=== PATIENT | female | born 1995 | race Caucasian/White ===

== ENCOUNTER 2024-03-27 19:07 | Emergency (ER) | payer OTHER, SELFPAY ==
[2024-03-27 19:14] VITALS: BP 144/80; PULSE 101; RESP 14; TEMP 38.1; O2SAT 100
--- NOTE | 2024-03-27 19:17 | ED.URI ---
HPI - URI/Sore Throat General Chief Complaint: Upper Respiratory Infection Stated Complaint: hot and cold/throat/pass out Time Seen by Provider: 03/27/24 19:17 Source: patient Mode of arrival: ambulatory Limitations: no limitations History of Present Illness HPI Narrative: 29-year-old female presents with complaint of sore throat, fatigue starting yesterday. Afebrile. Nausea started today. Able to keep down fluids. Took Tylenol prior to arrival. Patient's daughter tested positive for strep throat, has been on antibiotics for 4 days. All systems reviewed and negative except as noted above. Related Data Allergies Allergy/AdvReac Type Severity Reaction Status Date / Time No Known Allergies Allergy Verified 03/27/24 19:17 Review of Systems Review of Systems: CONSTITUTIONAL: Denies fever, chills, or sweats. Reports fatigue. EYES: Denies visual changes, redness, or discharge. ENT: Denies rhinorrhea, congestion. Reports sore throat. Denies otalgia. CARDIOVASCULAR: Denies chest pain, palpitations, or edema. RESPIRATORY: Denies cough or dyspnea. GASTROINTESTINAL: Denies abdominal pain, nausea, vomiting, or diarrhea. GENITOURINARY: Denies dysuria or hematuria. SKIN: Denies rash or itching. MUSCULOSKELETAL: Denies back pain, joint pain, or myalgia. NEUROLOGIC: Reports headache. Denies numbness, or weakness. PSYCHIATRIC: Denies anxiety or depression. All other systems reviewed are negative, except as documented in HPI. PMFSH Comments At time of signature, agree with nursing past medical, surgical, social and family history. There is no relevant family history pertinent to the presenting complaint. Exam Narrative: GENERAL: This is a well-nourished, well-developed patient, in no apparent distress. HEAD: normocephalic, atraumatic. EYES: PERRL. Sclera clear/white. Vision is grossly intact. EARS: External ears normal, auditory canals clear and without drainage, TMs normal without perforation. Hearing grossly intact. NOSE: External nose normal with no obvious nasal discharge, nares without redness, no rhinorrhea. THROAT: Mucous membranes moist, erythematous and swollen. Tonsils 1+ bilaterally without exudates. NECK: Neck supple, non-tender without lymphadenopathy, masses or thyromegaly. CARDIOVASCULAR: Regular rate and rhythm without murmurs, gallops, or rubs. RESPIRATORY: Clear to auscultation. Breath sounds equal bilaterally. No wheezes, rales, or rhonchi. SKIN: warm, Dry, intact with no suspicious lesions or rash, good texture and turgor. NEURO: awake, alert, and oriented to person, place and time. There were no obvious focal neurologic abnormalities. EXTREMITIES: No joint tenderness, effusion, or edema noted. Course Course Level of Care: Express Care Visit Vital Signs Vital signs: Vital Signs Temperature 38.1 C H 03/27/24 19:14 Pulse Rate 101 H 03/27/24 19:14 Respiratory Rate 14 03/27/24 19:14 Blood Pressure 144/80 H 03/27/24 19:14 Pulse Oximetry 100 03/27/24 19:14 Oxygen Delivery Room Air 03/27/24 19:14 Temperature 38.1 C H 03/27/24 19:14 Pulse Rate 101 H 03/27/24 19:14 Respiratory Rate 14 03/27/24 19:14 Blood Pressure 144/80 H 03/27/24 19:14 Pulse Oximetry 100 03/27/24 19:14 Oxygen Delivery Room Air 03/27/24 19:14 Reviewed MDM - URI/Sore Throat MDM Narrative Medical decision making narrative: Patient is aware of diagnosis, understands and agrees to treatment plan. Anticipatory guidance given. Patient agrees to follow-up as directed and is aware of reasons to seek care at the emergency department. Portions of this record may have been created with voice recognition software Strep test negative. Will treat patient with antibiotic due to exam findings and recent strep exposure. Differential Diagnosis Differential diagnosis: Likely pharyngitis Lab Data Labs: Strep Screen Presumptive Negative *(Referen
== END 2024-03-27 19:50 | disposition home or self-care (01) ==
PROVIDERS: Emergency Provider Nurse Practitioner Family; PCP Physician Assistant
DX: J02.0 Streptococcal pharyngitis (principal)
CPT/HCPCS: 87081; 87880; 99213; G0463

== ENCOUNTER 2024-05-21 10:11 | Emergency (ER) | payer OTHER, SELFPAY ==
[2024-05-21 10:15] VITALS: BP 143/85; PULSE 95; RESP 16; TEMP 37.6; O2SAT 100
--- NOTE | 2024-05-21 10:25 | ED.DENTAL ---
HPI - Dental/Oral General Chief complaint: Dental/Oral Stated complaint: Toothache Time Seen by Provider: 05/21/24 10:25 Source: patient Mode of arrival: ambulatory Limitations: no limitations History of Present Illness HPI Narrative: 29-year-old female presents with complaint of right upper dental pain for 2 days. Call dentist for appointment but was told to come to Urgent Care for antibiotic. All systems reviewed and negative except as noted above. Related Data Home Medications Medication Instructions Recorded Confirmed fluoxetine 20 mg capsule mg 05/21/24 Allergies Allergy/AdvReac Type Severity Reaction Status Date / Time No Known Allergies Allergy Verified 03/27/24 19:17 Review of Systems Review of Systems: CONSTITUTIONAL: Denies fever, chills, or sweats. EYES: Denies visual changes, redness, or discharge. ENT: Denies rhinorrhea, congestion, sore throat, or otalgia. reports R upper dental pain CARDIOVASCULAR: Denies chest pain, palpitations, or edema. RESPIRATORY: Denies cough or dyspnea. GASTROINTESTINAL: Denies abdominal pain, nausea, vomiting, or diarrhea. GENITOURINARY: Denies dysuria or hematuria. SKIN: Denies rash or itching. MUSCULOSKELETAL: Denies back pain, joint pain, or myalgia. NEUROLOGIC: Denies headache, numbness, or weakness. PSYCHIATRIC: Denies anxiety or depression. All other systems reviewed are negative, except as documented in HPI. PMFSH Comments At time of signature, agree with nursing past medical, surgical, social and family history. There is no relevant family history pertinent to the presenting complaint. Exam Narrative: GENERAL: This is a well-nourished, well-developed patient, in no apparent distress. HEAD: normocephalic, atraumatic. EYES: PERRL. Sclera clear/white. Vision is grossly intact. EARS: External ears normal NOSE: External nose normal MOUTH: no abnormality noted to teeth. there is erythema, swelling, tenderness to R upper gums with no abscess noted NECK: Neck supple, non-tender without lymphadenopathy, masses or thyromegaly. CARDIOVASCULAR: Regular rate and rhythm without murmurs, gallops, or rubs. RESPIRATORY: Clear to auscultation. Breath sounds equal bilaterally. No wheezes, rales, or rhonchi. SKIN: warm, Dry, intact with no suspicious lesions or rash, good texture and turgor. NEURO: awake, alert, and oriented to person, place and time. There were no obvious focal neurologic abnormalities. EXTREMITIES: No joint tenderness, effusion, or edema noted. Course Course Level of Care: Express Care Visit Vital Signs Vital signs: Vital Signs Temperature 37.6 C 05/21/24 10:15 Pulse Rate 95 05/21/24 10:15 Respiratory Rate 16 05/21/24 10:15 Blood Pressure 193/85 H 05/21/24 10:15 Pulse Oximetry 100 05/21/24 10:15 Oxygen Delivery Room Air 05/21/24 10:15 Temperature 37.6 C 05/21/24 10:15 Pulse Rate 95 05/21/24 10:15 Respiratory Rate 16 05/21/24 10:15 Blood Pressure 193/85 H 05/21/24 10:15 Pulse Oximetry 100 05/21/24 10:15 Oxygen Delivery Room Air 05/21/24 10:15 Reviewed MDM - Dental/Oral MDM Narrative Medical decision making narrative: Patient is aware of diagnosis, understands and agrees to treatment plan. Anticipatory guidance given. Patient agrees to follow-up as directed and is aware of reasons to seek care at the emergency department. Portions of this record may have been created with voice recognition software Differential Diagnosis Differential diagnosis: Likely dental caries, toothache and dental abscess Discharge Plan Discharge Clinical Impression: Pain, dental Patient Disposition: Home, Self-Care Condition: Stable Instructions: Antibiotic Form, Toothache (ED) Additional Instructions: Take antibiotic as prescribed until gone. Take ibuprofen every 6-8 hours as needed for pain. Follow-up with dentist for further evaluation. Prescriptions: New amoxicillin 875 mg tablet
[2024-05-21 10:33] VITALS: BP 132/80
== END 2024-05-21 10:36 | disposition home or self-care (01) ==
PROVIDERS: Emergency Provider Nurse Practitioner Family; PCP Physician Assistant
DX: K08.89 Other specified disorders of teeth and supporting structures (principal)
CPT/HCPCS: 99213; G0463

== ENCOUNTER 2024-08-02 11:52 | Outpatient (CLI) | payer OTHER, SELFPAY ==
[2024-08-02 13:04] LABS: Beta HCG Quantitative 85.06 mIU/ML
== END 2024-08-02 11:53 | disposition home or self-care (01) ==
LOC: ANHLAB 11:56
PROVIDERS: PCP Physician Assistant; Visit Provider Advanced Practice Midwife
DX: N91.2 Amenorrhea, unspecified (principal); Z32.01 Encounter for pregnancy test, result positive
CPT/HCPCS: 36415; 84702

== ENCOUNTER 2024-08-04 11:56 | Outpatient (CLI) | payer OTHER, SELFPAY ==
[2024-08-04 13:03] LABS: Beta HCG Quantitative 209.43 mIU/ML
== END 2024-08-04 11:57 | disposition home or self-care (01) ==
LOC: ANHLAB 12:05
PROVIDERS: PCP Physician Assistant; Visit Provider Advanced Practice Midwife
DX: Z32.01 Encounter for pregnancy test, result positive (principal)
CPT/HCPCS: 36415; 84702

== ENCOUNTER 2024-10-05 10:52 | Emergency (ER) | payer OTHER, SELFPAY ==
[2024-10-05 10:56] VITALS: BP 129/67; PULSE 82; RESP 20; TEMP 36.9; O2SAT 99
[2024-10-05 11:10] VITALS: BP 129/67; PULSE 82; RESP 20; TEMP 36.9; O2SAT 99
--- NOTE | 2024-10-05 11:37 | ED.URI ---
HPI - URI/Sore Throat General Chief Complaint: Upper Respiratory Infection Stated Complaint: Cough/ Time Seen by Provider: 10/05/24 11:37 Source: patient, RN notes reviewed and old records reviewed Mode of arrival: ambulatory Limitations: no limitations History of Present Illness HPI Narrative: 29-year-old female to Express Care with complaint of cough for 3 weeks. Patient states she was seen at [facility] care on the and diagnosed with bronchitis. Patient states she is 13 weeks . Patient reports using albuterol inhaler with some relief. patient denies difficulty swallowing, shortness of breath, chest pain, allergies, fever, ear pain, headache, GI complaints. Patient able to tolerate fluids by mouth. Patient resting comfortably in exam room in no acute distress. Respirations even and nonlabored. Patient able to speak in complete sentences without difficulty. Related Data Home Medications Medication Instructions Recorded Confirmed albuterol sulfate 90 mcg/actuation 2 puff inhalation Q4-6H PRN 10/05/24 10/05/24 aerosol inhaler Shortness Of Breath Or Wheezing vitamin 1 tablet PO DAILY 10/05/24 10/05/24 no.76-iron,carbonyl 29 mg iron-folic acid 1 mg tablet (Prenatabs Rx) prochlorperazine maleate 5 mg 5 mg PO Q6H PRN Nausea And Vomiting 10/05/24 10/05/24 tablet pyridoxine (vitamin B6) 25 mg 25 mg PO DAILY 10/05/24 10/05/24 tablet (Vitamin B-6) Allergies Allergy/AdvReac Type Severity Reaction Status Date / Time No Known Allergies Allergy Verified 10/05/24 11:04 Review of Systems Review of Systems: All systems reviewed & are unremarkable except as noted in HPI and below Constitutional: Constitutional: Reports no additional constitutional complaints Eyes: Eyes: Reports no additional eye complaints ENT: Reports system reviewed and no additional complaints, except as documented Cardiovascular: Cardiovascular: Reports no additional cardiovascular complaints, Denies chest pain and Denies dyspnea Respiratory: Respiratory: Reports no additional respiratory complaints, Reports cough and Denies dyspnea Musculoskeletal: Musculoskeletal: Reports no additional musculoskeletal complaints Neurologic: Reports system reviewed and no additional complaints, except as documented Psychiatric: Psychiatric: Reports no additional psychiatric complaints PMFSH Comments At the time of my signature, I reviewed and agree with the nursing past medical, surgical, social, and family history. There is no relevant family history pertinent to the patient complaint. Exam Const: General: cooperative, healthy appearing, no acute distress, alert, tired appearing and well nourished Nutritional Appearance: well nourished Orientation/consciousness: patient oriented x3 Limitations: no limitations HENMT: Head: normal to inspection Ears: external ears normal and TM abnormal with fluid behind the TM bilateral Face/Nose/Sinus: Normal external nose present, Normal nares present, No erythema, No edema and sinus tenderness Face and sinus: normal facial exam, no erythema and no edema Mouth: Yes Normal oral and palatal mucosa present Throat: postnasal drainage ( Purulent) Eyes: General: appearance normal, both eyes and all related structures Neck: Neck: normal visual inspection, full ROM and no meningeal signs Lymphatic: no lymphadenopathy noted and no lymphedema noted Chest: Chest palpation & inspection: normal inspection of the chest Resp: Effort & Inspection: normal respiratory effort and able to speak in complete sentences Auscultation: clear to auscultation bilaterally Cardio: Jugular venous distension: no JVD Rate: regular rate Rhythm: regular rhythm Back/Spine/Pelvis: Cervical Spine: cervical ROM normal Skin: General skin exam: normal color, no rashes or lesions noted and turgor normal Neuro: General: patient oriented x3, gait normal, moves all extremities and no meningeal signs Speech: normal speech Gait exam (Neuro): Normal gait present Extrem: General: normal to inspection, full ROM and capillary refill normal Psych: Appearance: grossly normal and well kempt Course Course Emergency Course: Some parts of this dictation were generated by voice recognition software and may contain typographical and/or grammatical inaccuracies. Level of Care: Express Care Visit Vital Signs Vital signs: Vital Signs Temperature 36.9 C 10/05/24 10:56 Pulse Rate 82 10/05/24 10:56 Respiratory Rate 20 10/05/24 10:56 Blood Pressure 129/67 10/05/24 10:56 Pulse Oximetry 99 10/05/24 10:56 Oxygen Delivery Room Air 10/05/24 10:56 Temperature 36.9 C 10/05/24 11:10 Pulse Rate 82 10/05/24 11:10 Respiratory Rate 20 10/05/24 11:10 Blood Pressure 129/67 10/05/24 11:10 Pulse Oximetry 99 10/05/24 11:10 Oxygen Delivery Room Air 10/05/24 11:10 reviewed MDM - URI/Sore Throat MDM Narrative Medical decision making narrative: 29-year-old female to Express Care with complaint of cough for 3 weeks. Patient states she was seen at [facility] on the and diagnosed with bronchitis. Patient states she is 13 weeks . Patient reports using albuterol inhaler with some relief. patient denies difficulty swallowing, shortness of breath, chest pain, allergies, fever, ear pain, headache, GI complaints. Patient able to tolerate fluids by mouth. Patient resting comfortably in exam room in no acute distress. Respirations even and nonlabored. Patient able to speak in complete sentences without difficulty. exam, bilateral TMs with fluid, posterior oropharynx with purulent drainage, sinus tenderness. Bilateral nares erythematous and boggy. Patient is sitting comfortably in exam room nontoxic in appearance. Patient appropriate for outpatient treatment and follow-up. Discharge instructions reviewed with patient, as well as provided in writing per nursing staff. The instructions also include specific and strict return/GO TO THE ER as well as f/u information. All questions have been answered, and the patient deny any further questions with discharge and discharge plan. Some parts of this dictation were generated by voice recognition software and may contain typographical and/or grammatical inaccuracies. Differential Diagnosis Differential diagnosis: Likely upper respiratory infection, croup, otitis media, sinusitis, viral infection, bronchitis, influenza and pharyngitis Discharge Plan Discharge Clinical Impression: Bacterial sinusitis Patient Disposition: Home, Self-Care Condition: Stable Instructions: Sinusitis (ED) Additional Instructions: - Tylenol per package directions for fever or pain. - Be sure to drink plenty of water with these medications at least 8 ounces with every dose and it is important to drink 8 to 10 glasses of water per day. Water is a natural decongestant -Eat and drink things that are easy to swallow, like tea or soup, or popsicles. -Frequent hand washing or hand news assignment editor is one of the best ways to prevent spread of infection. -Using a vaporizer or humidifier at night will also help thin secretions and help with coughing up phlegm. -Follow up with primary care provider in 2-3 days if condition is not improving; or seek ER visit if you have trouble breathing, cannot drink enough fluids, have muffled voice, difficulty opening your mouth, or severe swelling. Prescriptions: New amoxicillin 875 mg tablet 875 mg PO Q12H Qty: 20 0RF No Action Prenatabs Rx 29 mg iron- 1 mg tablet 1 tablet PO DAILY pyridoxine (vitamin B6) [Vitamin B-6] 25 mg tablet 25 mg PO DAILY albuterol sulfate 90 mcg/actuation HFA aerosol inhaler 2 puff INHALATION Q4-6H PRN (Reason: Shortness Of Breath Or Wheezing) prochlorperazine maleate 5 mg tablet 5 mg PO Q6H PRN (Reason: Nausea And Vomiting) Follow-up/Referrals: Nathalia,JESSICA Bernstein [Primary Care Provider] - Stand Alone Forms: Work/School Release IP
== END 2024-10-05 12:15 | disposition home or self-care (01) ==
PROVIDERS: Emergency Provider Nurse Practitioner Family; PCP Physician Assistant
DX: O99.511 Diseases of the respiratory system complicating pregnancy, first trimester (principal); Z3A.13 13 weeks gestation of pregnancy; J01.90 Acute sinusitis, unspecified
CPT/HCPCS: 99213; G0463

== ENCOUNTER 2025-06-16 14:03 | Emergency (ER) | payer OTHER, SELFPAY ==
--- OUTSIDE RECORDS SUMMARY | 2025-06-16 14:05 | XMS_ITS | Clinical Summary ---
Author Organization [facility] [employer] Address [address] [place] [address] Care Team Providers Care Sinter Feeder Name Role Phone Unavailable Primary Care Provider Unavailabl e Source Comments [facility] [employer],non-owned Affiliates and Associated Physician Practices is amultiple site organization consisting of ambulatory clinics and hospital sitesin [place], [place], [place] and [place]. This disclosure is being madepursuant to the Care Everywhere program and may not contain all information available regarding this patient. Last updated 18.[employer] Allergies No known active allergies Medications * This document contains information received from the source organization and may not represent a complete record from that organization. * Be aware that medications may not be up to date on this document. Alwaysverify current medications with the patient. fluticasone propionate (FLONASE) 50 MCG/ACT nasal sprayIndications :Viral upper respiratory tract infection [place] 2 sprays into each nostril once daily 1 bottles 8 Active sertraline (Zoloft) 50 MG tabletIndication s:Depression Take 1 (one) tablet by mouth once daily Reasons: Depression 30 tablet 4 Active Social History Tobacco Use Types Packs/Day Years Used Date Smoking Tobacco: Never Smokeless Tobacco: Never Tobacco Cessation:Counseling Given: Not Answered Comments No Sex and Gender Information Value Date Recorded Sex Assigned at Not on file Legal Sex Female 9:03 AM [employer] Gender Identity Not on file Sexual Orientation Not on file Last Filed Vital Signs Vital Sign Reading Time Taken Comments Blood Pressure 125/72 08/27/2024 5:40 PM CDT Pulse 65 08/27/2024 5:40 PM CDT Temperature 37.1 C (98.7 F) 08/27/2024 5:40 PM CDT Respiratory Rate 17 08/27/2024 5:40 PM CDT Oxygen Saturation 100% 08/27/2024 5:40 PM CDT Inhaled Oxygen Concentration - - Weight 81.6 kg (180 lb) 08/27/2024 5:40 PM CDT Height 175.3 cm (5' 9) 08/27/2024 5:40 PM CDT Body Mass Index 26.58 08/27/2024 5:40 PM CDT Plan of Treatment Health Maintenance Due Date Last Done Comments HIV SCREENING 2009 HEPATITIS C SCREENING 02/11/2012 DTAP/TDAP/TD VACCINES (1 - Tdap) 2013 HEPATITIS B VACCINE (1 of 3 - 19+ 3-dose series) 2013 HPV VACCINE (1 - 3-dose SCDM series) 2021 PAP SMEAR 09/13/2023 09/13/2020 COVID-19 VACCINE (1 - 2023-2 5 season) 2024 DEPRESSION SCREENING 11/10/2024 INFLUENZA VACCINE (#1) 2025 3, 09/24/2002, 08/24/2002 ZOSTER VACCINE (1 of 2) 02/16/2044 HIB VACCINE Aged Out No longer eligi ble based on patient's age to complete this topic MENINGOCOCCAL (Group B) VACCINE SHARED DECISION-MAKING Aged Out No longer eligible based on patient's age to complete this topic MENINGOCOCCAL GROUPS A/C/Y/W VACCINE Aged Out No longer eligible b ased on patient's age to complete this topic PNEUMOCOCCAL VACCINE Aged Out No long er eligible based on patient's age to complete this topic Insurance [place] [address] [place] [address] [employer] * Guarantor: SUKI CIFUENTES Account Type Relation to Patient Date of Phone Billing Address Personal/Family 1994 [address] [place] [address]
--- OUTSIDE RECORDS SUMMARY | 2025-06-16 14:06 | XMS_ITS | Encounter Summary ---
Author Organization [facility] Address [address] [place] [address] Phone Care Team Providers Care Erosion Control Coordinator Name Role Phone Jessica Sloan Primary Care Provider + Peter Jade MD Unavailable [phone] Encounter Details Date Type Department Care Team (Late st Contact Info) Description 05/30/2025 Results Follow-Up [facility] - Family Medicine - [place] [address] [place] [phone] Jazmin Medley, STEAM GIGGER, WEIGHT CALLER [address] [place] [address] CBC WITH AUTO DIFFERENTIAL, THYROID SCREEN WITH REFLEX Social History Tobacco Use Types Packs/Day Years Used Date Smoking Tobacco: Former Smokeless Tobacco: Never Comments:only if I'm going out, dont smoke anyother time. Alcohol Use Standard Drinks/Week Comments Yes 2 (1 standard drink = 0.6 oz pur e alcohol) saurav andino or alexandre kim [facility] Utilities Answer Date Recorded In the past 12 months has [employer] electric, gas, oil, or water company threatened to shut off services in your home? No 05/04/2024 Social Connection and Isolation Panel Answer Date Recorded In a typical week, how many times do you talk on the phone with family, friends, or neighbors? Twice a week 05/04/2024 How often do you get together with friends or re latives? Once a week 05/04/2024 How often do you attend religion or tenriism serv ices? Never 05/04/2024 Do you belong to any clubs o r organizations such as religion groups, unions, fraternal or athletic groups, or school groups? No 05/04/2024 How often do you attend meet ings of the clubs or organizations you belong to? Never 05/04/2024 Are you , , di vorced, , never , or living with a partner? 05/04/2024 AUDIT-C Answer Date Recorded Q1: How often do you have a drink containing alc ohol? Monthly or less 05/04/2024 Q2: How many drinks containi ng alcohol do you have on a typical day when you are drinking? 1 or 2 05/04/2024 Q3: How often do you have si x or more drinks on one occasion? Never 05/04/2024 Overall Financial Resource Strain (CARDIA) Answe r Date Recorded How hard is it for you to pa y for the very basics like food, housing, medical care, and heating? Hard 05/04/2024 PHQ-2 Answer Date Recorded Total Score - Questions 1-9 1 05/11 [facility] Occupational Stress Questionnaire Answer Date Recorded Do you feel stress - tense, restless, nervous, or anxious, or unable to sleep at night because your mind is troubled all the time - these days? To some extent 05/04/2024 Exercise Vital Sign Answer Date Recorde d On average, how many days pe r week do you engage in moderate to strenuous exercise (like a brisk walk)? 2 days 05/04/2024 On average, how many minutes do you engage in exercise at this level? 0 min 05/04/2024 Hunger Vital Sign Answer Date Recorded Within the past 12 months, y ou worried that your food would run out before you got the money to buy more. Never true 05/04/20 24 Within the past 12 months, t he food you bought just didn't last and you didn't have money to get more. Never true 05/04/2024 PRAPARE - Transportation Answer Date Re corded In the past 12 months, has l ack of transportation kept you from medical appointments or from getting medications? No 04/11 In the past 12 months, has l ack of transportation kept you from meetings, work, or from getting things needed for daily living? No 05/04/2024 Housing Stability Vital Sign Answer Darryl e Recorded In the last 12 months, was t here a time when you were not able to pay the mortgage or rent on time? No 11/05/2023 Number of Places Lived in the Last Year Not on f ile 11/05/2023 In the last 12 months, was t here a time when you did not have a steady place to sleep or slept in a usp (including now)? No 11/05/2023 Housing Stability Vital Sign Answer Darryl e Recorded In the last 12 months, was t here a time when you were not able to pay the mortgage or rent on time? No 05/04/2024 Number of Times Moved in the Last Year Not on fi le 05/04/2024 At any time in the past 12 m [facility], were you homeless or living in a usp (including now)? No 05/04/2024 Education Answer Date Recorded What is the highest level of school you have completed or the highest degree you have received? Some college, no degree 06/13/2020 Sexually Active Control Partners Comments Yes Male Comments Yes Sex and Gender Information Value Date Recorded Sex Assigned at Not on file Legal Sex Female 1:52 PM CDT Gender Identity Not on file Sexual Orientation Not on file documented as of this encounter Functional Status * Question Answer Date of Assessment Author Little interest or pleasure in doing things Not at all 05/30/2025 8:40 AM CDT Kiera Lizarraga Feeling down, depressed, or hopeless Not at all 05/30/2025 8:40 AM CDT Kiera Lizarraga * Over the past 2 weeks, how often have you been bothered by any of the following problems? Question Answer Date of Assessment Author Patient Health Questionnaire -2 Score 0 05/30/2025 8:40 AM CDT Kiera Lizarraga documented as of this encounter Plan of Treatment Upcoming Encounters Date Type Department Care Team (Late st Contact Info) Description 08/05/2025 1:45 PM CDT Office Visit [facility] - Family Medicine - [place] [place] [address] Jessica Sloan, PAC [address] [place] [address] documented as of this encounter Goals Goal Patient Goal Type Associated Problems Recent Progress Patient-Stated? Author [facility] Behavioral Health On track( 11:06 AM CDT) Yes Rachel Mercedes LCPC Note: Suki reports a desire to get back to normal, improve ability to cope. Goal Reviewed with: patient Readiness to change: Ready to change Department associated with goal: [facility] Steps to achieve goal: Suki to identify three activities/coping skills that have worked to prevent/reduce anxiety in the past. Suki to identify three new activities/coping skills that she believes may work to prevent/reduce anxiety. Suki to practice one coping skill/activity a week to prevent/reduce anxiety. Suki will attend group or individual sessions at least one time a month. Behavioral [facility] Worsening( 11:08 AM CDT) No Rachel Mercedes LCPC Note: Suki will exhibit/verbalize insight regarding benefits and relief gained from coping with anger more effectively Goal Reviewed with: patient Readiness to change: Not yet ready to make a change Department associated with goal: [facility] Steps to achieve goal: Pt to engage in self disclosure in counseling/psychotherapy sessions, attending at least two times monthly. Pt to learn and acknowledge/verbalize benefits (at least three) of expressing her thoughts and feelings to reduce anxiety and anger Pt will learn at least one relaxation method to use routinely Pt will learn cognitive strategy to help manage anger documented as of this encounter Visit Diagnoses Not on filedocumented in this encounter Additional Health Concerns Assessment Noted Time PHQ-9 Depression Total Score: 1 05/30/20 25 8:40 AM CDT documented as of this encounter Care Teams Erosion Control Coordinator Relationship Specialty Start Date End Date Jessica Sloan PAC [address] [place] [address] PCP - General Physician Postmaster 09/26/17 Peter Jade MD [address] [place] [address] Consulting Physician Obstetrics & Gynecology 06/02/18 documented as of this encounter
--- OUTSIDE RECORDS SUMMARY | 2025-06-16 14:06 | XMS_ITS | Clinical Summary ---
Author Organization [facility] Address [address] [facility] [place] [address] Phone Care Team Providers Care Mailroom Messenger Name Role Phone Jessica Sloan Primary Care Provider + Peter Jade MD Unavailable [phone] Allergies No known active allergies Medications Benzonatate 200 MG Capsule Take 1 Capsule by mouth 3 times daily as needed for Cough. 30 Capsule 4 Active Additional Information Patient not taking.Reported on 06/16/2025 FLUoxetine (PROzac) 20 MG CapsuleIndicati ons:Binge eating Take 1 Capsule by mouth daily. 90 Capsule 4 Active Additional Information Patient not taking.Reported on 06/16/2025 Multiple Vitamin (MULTI-VITAMIN PO) Take by mouth. Activ e albuterol 108 (90 Base) MCG/ACT Aerosol SolutionIndicat ions:Bronchospa sm take 2 Puffs by inhalation every 6 hours as needed for Cough (sob). 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 [address] [facility] [address] [place] [address] [facility] D[facility] Discharge Disposition: Discharged to home or Selfcare 05/30/2025 8:30 AM CDT Office Visit [facility] [address] [place] [address] Jazmin Medley, SOCIAL SECURITY ASSESSOR, DRAFTER ASSISTANT Encounter for physical examination (Primary Dx); Depressive disorder; Dizziness Discharge Disposition: Discharged to home or Selfcare 05/30/2025 Results Follow-Up [facility] [address] [place] [address] Jazmin Medley, SOCIAL SECURITY ASSESSOR, DRAFTER ASSISTANT CBC WITH AUTO DIFFERENTIAL, THYROID SCREEN WITH REFLEX 05/30/2025 Travel from Last 3 Months Immunizations Immunization Administration Dates Next Due [id number] gustavo MCV4, Unspecif ied Formulation 08/19/2011 DTAP VACCINE 10/16/1995, 5,06/20/1995,08/15,1994 Hepatitis B Vaccine, Pediatric/adolescent 03/22/1996,10/16/1995 Hib (HbOC) 10/16/1995, 5,1994,04/22 Influenza Vaccine 10/05/2003,09/24/2002,08/24/20 02 Influenza, Seasonal, Injecta ble, Undefined 10/05/2003,09/24/2002,08/24/2002 MMR Vaccine 06/20/1999,07/03/1995 Meningococcal Polysaccharide Vaccine (MPSV4) 08/19/2011 OPV 06/20/1999, 5,1994,04/22 RHO D IG FULL DOSE 300 MCG IM 04/24/2018 TDAP Vaccine 02/05/2021,05/07/2006 Family History Medical History Relation Name Comments Cancer Maternal Grandfather Anxiety disorder Maternal Grandmother Anxiety disorder Mother Hypertension Paternal Grandfather Hypertension Paternal Grandmother Relation Name Status Comments Maternal Grandfather Maternal Grandmother Mother Paternal Grandfather Paternal Grandmother Social History Tobacco Use Types Packs/Day Years Used Date Smoking Tobacco: Former Smokeless Tobacco: Never Tobacco Cessation:Counseling Given: Not Answered Comments:only if I'm going out, dont smoke anyother time. Alcohol Use Standard Drinks/Week Comments Yes 2 (1 standard drink = 0.6 oz pur e alcohol) saurav andino or alexandre kim [facility] Utilities Answer Date Recorded In the past 12 months has th [employer] electric, gas, oil, or water company threatened [...] week 05/04/2024 How often do you attend cheondoism or orthodox serv ices? Never 05/04/2024 Do you belong to any clubs o r organizations such as cheondoism groups, unions, fraternal or athletic groups, or [...] Total Score - Questions 1-9 1 05/11 [facility] - Occupational Stress Questionnaire Answer Date Recorded [...] place to sleep or slept in a senior care (including now)? No 11/05/2023 Housing Stability Vital Sign Answer Darryl e Recorded In the last 12 months, was t here a time when you were not able to pay the mortgage or rent on time? No 05/04/2024 Number of Times Moved in the Last Year Not on fi le 05/04/2024 At any time in the past 12 m [facility], were you homeless or living in a senior care (including now)? No 05/04/2024 Education Answer Date [...] Sign Reading Time Taken Comments Blood Pressure 118/74 05/30/2025 8:29 AM CDT Pulse 72 05/30/2025 8:29 AM CDT Temperature 36.4 C (97.6 F) 05/30/2025 8:29 AM CDT Respiratory Rate 18 05/30/2025 8:29 AM CDT Oxygen Saturation 98% 05/30/2025 8:29 AM CDT Inhaled Oxygen Concentration - - Weight 96 kg (211 lb 9.6 oz) 05/30/2025 8:29 AM CDT Height 175.3 cm (5' 9) 05/30/2025 8:29 AM CDT Body Mass Index 31.25 05/30/2025 8:29 AM CDT Plan of Treatment Upcoming Encounters Date Type Department Care Team (Late st Contact Info) Description 08/05/2025 1:45 PM CDT [facility] [place] [address] Jessica Sloan, PAC [address] [place] [address] Health Maintenance Due Date Last Done Comments Hepatitis C Virus (HCV) Screening 1994 Hepatitis B Immunization (3 of 3 - 3-dose series) 05/17/1996 03/22/1996, 10/16/1995 Human Papillomavirus (HPV) Immunization (1 - 3-dose SCDM series) 2021 Pap Smear 09/13/2023 09/13/2020 Cervical Cancer Screening (CCS) 02/16/2024 HPV/Cotest 02/16/2024 SARS-COV-2 Immunization ( season) 2024 Influenza Immunization (#1) 07/11/202509/11, 10/05/2003, 09/24/2002, Additional history exists DTaP/Tdap/Td Immunization (7 - Td or Tdap) 02/03/2035 02/03/2025, 02/05/2021, 05/07/2006, Additional history exists Respiratory Syncytial Virus (RSV) Immunization (Adult) (1 - 1-dose 75+ series) 2069 Meningococcal Immunization (ACWY) Aged Out 08/19/2011, 08/19/2011 No longer eligibl e based on patient's age to complete this topic Pneumococcal Immunization Combined Aged Out No longer eligible based on patient's age to complete this topic Rotavirus Immunization Aged Out No lo nger eligible based on patient's age to complete this topic Goals Goal Patient Goal Type Associated Problems Recent Progress Patient-Stated? Author [facility] Behavioral Health On track( 11:06 AM CDT) Yes Rachel Mercedes LCPC Note: Suki reports a desire to get back to normal, improve ability to cope. Goal Reviewed with: patient Readiness to change: Ready to change Department associated with goal: [facility] Steps to achieve goal: Suki to identify three activities/coping skills that have worked to prevent/reduce anxiety in the past. Suki to identify three new activities/coping skills that she believes may work to prevent/reduce anxiety. Suki to practice one coping skill/activity a week to prevent/reduce anxiety. Suki will attend group or individual sessions at least one time a month. Behavioral [facility] Behavioral Health Worsening( 11:08 AM CDT) No Rachel Mercedes LCPC Note: Suki will exhibit/verbalize insight regarding benefits and relief gained from coping with anger more effectively Goal Reviewed with: patient Readiness to change: Not yet ready to make a change Department associated with goal: [facility] Steps to achieve goal: Pt to engage in self disclosure in counseling/psychotherapy sessions, attending at least two times monthly. Pt to learn and acknowledge/verbalize benefits (at least three) of expressing her thoughts and feelings to reduce anxiety and anger Pt will learn at least one relaxation method to use routinely Pt will learn cognitive strategy to help manage anger Procedures Procedure Name Priority Date/Time Associated Diagnosis Comments THYROID SCREEN WITH REFLEX Routine 05/30/2025 9:03 AM CDT Dizziness CBC WITH AUTO DIFFERENTIAL Routine 05/30/2025 9:03 AM CDT Dizziness THYROID SCREEN WITH REFLEX Routine 05/30/2025 9:03 AM CDT Dizziness COMPLETE BLOOD COUNT (CBC) WITH DIFF Routine 05/30/2025 9:03 AM CDT Dizziness PATHOLOGY CYTOLOGY SECONDARY ART TEACHER 09/13/2020 12:00 AM ADVERTISING CAMPAIGN MANAGER from Last 3 Months or Most Recently Relevant to Health Maintenance Results * THYROID SCREEN WITH REFLEX (05/30/2025 9:03 AM CDT) TSH 1.849 0.300 - 5.000 mIU/L 05/30/2025 1:15 PM CDT [email or web address] Blood Venipuncture / Unknown 05/30/2025 9:03 AM CDT 05/30/2025 9:03 AM CDT us Jazmin Medley APRN, DRAFTER ASSISTANT CHEMISTRY ORDERABLES Fin al Result [facility] [address] [place] [address] * (ABNORMAL) CBC WITH AUTO DIFFERENTIAL (05/30/2025 9:03 AM CDT) WBC 8.19 4.00 - 12.00 10(3)/mcL 05/30/2025 12:09 PM CDT [facility] RBC 4.79 3.80 - 5.30 10(6)/mcL 05/30/2025 12:09 PM CDT [facility] HEMOGLOBIN (HGB) 12.7 12.0 - 15.8 g/dL 05/30/2025 12:09 PM CDT [facility] HEMATOCRIT (HCT) 40.5 36.0 - 47.0 % 05/30/2025 12:09 PM CDT [facility] MCV 84.6 82.0 - 96.0 fL 05/30/2025 12:09 PM CDT [facility] MCH 26.5 26.0 - 34.0 pg 05/30/2025 12:09 PM CDT [facility] MCHC 31.4 31.0 - 36.0 g/dL 05/30/2025 12:09 PM CDT [facility] PLATELET COUNT 359 140 - 440 10(3)/mcL 05/30/2025 12:09 PM CDT [facility] RDW 14.6 11.8 - 15.5 % 05/30/2025 12:09 PM CDT [facility] MPV 9.9 9.7 - 12.4 fL 05/30/2025 12:09 PM CDT [facility] NEUTROPHILS 54.8 47.0 - 73.0 % 05/30/2025 12:09 PM CDT [facility] LYMPHOCYTES 31.4 18.0 - 42.0 % 05/30/2025 12:09 PM CDT [facility] MONOCYTES 7.4 4.0 - 12.0 % 05/30/2025 12:09 PM CDT [facility] EOSINOPHILS 5.3(H) 0.0 - 5.0 % 05/30/2025 12:09 PM CDT [facility] BASOPHILS 0.9 0.0 - 1.0 % 05/30/2025 12:09 PM CDT [facility] IMMATURE GRANULOCYTE 0.2 0.0 - 0.4 % 05/30/2025 12:09 PM CDT [facility] Comment:Immature Granulocyte s includes Metamyelocytes, Myelocytes, and Promyelocytes. ABSOLUTE NEUTROPHILS 4.49 1.60 - 7.70 10(3)/mcL 05/30/2025 12:09 PM CDT [facility] ABSOLUTE LYMPHOCYTES 2.57 1.30 - 3.20 10(3)/mcL 05/30/2025 12:09 PM CDT [facility] ABSOLUTE MONOCYTES 0.61 0.20 - 1.00 10(3)/mcL 05/30/2025 12:09 PM CDT [facility] ABSOLUTE EOSINOPHIL 0.43(H) 0.00 - 0.40 10(3)/mcL 05/30/2025 12:09 PM CDT [facility] ABSOLUTE BASOPHILS 0.07 0.00 - 0.10 10(3)/mcL 05/30/2025 12:09 PM CDT [facility] ABSOLUTE IMMATURE GRANULOCYTE 0.02 0.00 - 0.03 10 (3) mcL. 05/30/2025 12:09 PM CDT [facility] NRBC PER 100 WBC 0 05/30/20 12:09 PM CDT [facility] Blood Venipuncture / Unknown 05/30/2025 9:03 AM CDT 05/30/2025 9:03 AM CDT Jazmin Medley SOCIAL SECURITY ASSESSOR, DRAFTER ASSISTANT HEMATOLOGY ORDERABLES Fi nal Result Performing Organization Address City/[facility] Co de Phone Number [facility] [address] [place] [address] * PATHOLOGY CYTOLOGY SECONDARY ART TEACHER (09/13/2020 12:00 AM ADVERTISING CAMPAIGN MANAGER) 09/13/2020 Provider Scan PATHOLOGY/CYTOLOGY ORDERABLES Fi nal Result Performing Organization Address City/[facility]/ZIP Co de Phone Number [facility] from Last 3 Months or Most Recently Relevant to Health Maintenance Insurance [employer] Care Teams Mailroom Messenger Relationship Specialty Start Date End Date Jessica Sloan PAC [address] [place] [address] PCP - General Physician [employer] Certified Network Associate 09/26/17 Peter Jade MD [address] [place] [address] Consulting Physician Obstetrics & Gynecology 06/02/18
--- OUTSIDE RECORDS SUMMARY | 2025-06-16 14:06 | XMS_ITS | Encounter Summary ---
Author Organization [facility] Address [address] [place] [address] Phone Care Team Providers Care Metal Buildings Assembler Name Role Phone Jessica Sloan Primary Care Provider + Peter Jade MD Unavailable [phone] Reason for Visit * Reason Onset Date Comments Results 01/21/2022 Encounter Details Date Type Department Care Team (Late st Contact Info) Description 01/21/2022 Telephone [facility] [address] [place] [address] Jessica Sloan PAC [address] [place] [address] Results Social History Tobacco Use Types Packs/Day Years Used Date Smoking Tobacco: Former Smokeless Tobacco: Never Comments:only if I'm going out, dont smoke anyother time. Alcohol Use Standard Drinks/Week Comments Yes 2 (1 standard drink = 0.6 oz pur e alcohol) saurav andino or alexandre kim AUDIT-C Answer Date Recorded Q1: How often do you have a drink containing alc ohol? 2-4 times a month 04/20/2020 Q2: How many drinks containi ng alcohol do you have on a typical day when you are drinking? 1 or 2 04/20/2020 Q3: How often do you have si x or more drinks on one occasion? Less than monthly 04/20/2020 PHQ-2 Answer Date Recorded Total Score - Questions 1-9 15 01/08 Education Answer Date Recorded What is the highest level of school you have completed or the highest degree you have received? Some college, no degree 06/13/2020 Sexually Active Control Partners Comments Yes Male Comments No Sex and Gender Information Value Date Recorded Sex Assigned at Not on file Legal Sex Female 1:52 PM CDT Gender Identity Not on file Sexual Orientation Not on file COVID-19 Exposure Response Date Recorded In the last month, have you been in contact with someone who was confirmed or suspected to have Coronavirus / COVID-19? No / Unsure 01/21/2022 9:15 AM CDT documented as of this encounter Miscellaneous Notes * Telephone Encounter - Jessica Sloan PAC - 01/21/2022 4:38 PM CDT Normal labs, awaiting on vitamin d * Telephone Encounter - Bindu Mack - 01/21/2022 4:21 PM CDT Patient calling for lab results as she saw them on her MyChart. Still waiting on the vitamin D. documented in this encounter Plan of Treatment Upcoming Encounters Date Type Department Care Team (Late st Contact Info) Description 08/05/2025 1:45 PM CDT Office Visit [facility] - Family Medicine [facility] [address] [place] [address] Jessica Sloan PAC [address] [place] [address] documented as of this encounter Goals Goal Patient Goal Type Associated Problems Recent Progress Patient-Stated? Author Behavioral Health Behavioral Health On track( 022 11:06 AM CDT) Yes Rachel Mercedes LCPC Note: Suki reports a desire to get back to normal, improve ability to cope. Goal Reviewed with: patient Readiness to change: Ready to change Department associated with goal: [facility] Steps to achieve goal: Suki to identify three activities/coping skills that have worked to prevent/reduce anxiety in the past. Suki to identify three new activities/coping skills that she believes may work to prevent/reduce anxiety. Suki to practice one coping skill/activity a week to prevent/reduce anxiety. Suki will attend group or individual sessions at least one time a month. Behavioral Health Behavioral Health Worsening( 11:08 AM CDT) No Rachel Mercedes LCPC Note: Suki will exhibit/verbalize insight regarding benefits and relief gained from coping with anger more effectively Goal Reviewed with: patient Readiness to change: Not yet ready to make a change Department associated with goal: [facility] Steps to achieve goal: [...] Assessment Noted Time PHQ-9 Depression Total Score: 15 01/21/ 022 9:00 AM CDT documented as of this encounter Care Teams Metal Buildings Assembler Relationship Specialty Start Date End Date Jessica Sloan PAC [address] [place] [address] PCP - General Physician Career Services Director 09/26/17 Peter Jade MD [address] [place] [address] Consulting Physician Obstetrics & Gynecology 06/02/18 documented as of this encounter
--- OUTSIDE RECORDS SUMMARY | 2025-06-16 14:06 | XMS_ITS | Clinical Summary ---
Author Organization [facility] Medical Office Building B Address [address] [place] [address] Care Team Providers Care Patrol Inspector Name Role Phone Jessica Sloan Primary Care Provider + [phone] Allergies No known active allergies Medications calcium carbonate (TUMS) 500 mg calcium (200 mg of elemental calcium) chewable tablet Take 1 tablet/chew tab (500 mg total) by mouth as needed for indigestion or heartburn Active vit,prhe51-qrb n-folic (PRENATABS RX) tablet tablet Take 1 tablet by mouth daily 30 tablet 11 4 08/09/20 25 Active famotidine (PEPCID) 20 mg tablet Take 1 tablet (20 mg total) by mouth daily 30 tablet 3 5 Active acetaminophen 500 mg capsuleIndicat ions:Pain Take 2 capsules (1,000 mg total) by mouth every 6 (six) hours as needed for pain 60 tablet 5 Active labetaloL (NORMODYNE,TRA NDATE) 100 mg tablet Take 1 tablet (100 mg total) by mouth 2 (two) times a day 60 tablet 2 5 06/22/20 25 Active Additional Information Patient not taking.Reported on 05/05/2025 docusate sodium (COLACE) 100 mg capsuleIndicat ions:constipat ion,Stool Softener Take 1 capsule (100 mg total) by mouth 2 (two) times a day as needed for constipation 30 capsule 5 Active ibuprofen (ADVIL,MOTRIN) 600 mg tabletIndicati ons:Pain Take 1 tablet (600 mg total) by mouth every 6 (six) hours as needed for pain 60 tablet 5 Active polyethylene glycol (MIRALAX) 17 gram/dose bulk powder Take 17 g by mouth daily as needed (constipation) 289 g 5 Active dicloxacillin (DYNAPEN) 500 mg capsule Take 1 capsule (500 mg total) by mouth 4 (four) times a day for 10 days 40 capsule 5 05/22/20 25 Active Problems Problem Noted Date Diagnosed Date Gestational hypertension, third trimester 2024 Overview (03/22/2025): Suki Evans is a 30 y.o. female at 37w0d who is dated by L=1 and is being admitted for an induction of labor secondary to gHTN . Admit to L&D: Labs: CBC and T&S pending. Induction of labor with misoprostol and cervical ripening balloon . FWB: Continuous monitoring. Reactive NST . ID: 3rd trimester HIV (>28 wga) negative on 03/22. GBS negative on 03/22 . RPR on admission: pending. History of genital HSV or HSV 1/2 seropositivity: No. Membrane Status: intact. Indications for UDS: none. Verbal consent obtained for UDS: Not indicated. MOF: Exclusively pumping . Urine drug screen not indicated. Patient informed of results: N/A. MOC: decline s/p counseling . Pain management: Desires epidural . Post DVT prophylaxis: The patient has the following MAJOR risk factors none and the following MINOR risk factors BMI 30-39. SCDs will be ordered for VTE prophylaxis . complicated by: #gHTN: Diagnosed at 29 weeks. Currently on labetalol 100mg BID. CBC/CMP wnl; UPC 0.17. 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 Vaginal packing and floseal used. Later complicated by formation of introital adhesions, s/p adhesiolysis. #Anxiety/Depression: H/o severe peripartum depression. Provided information for PBHS in early . Current regimen: Fluoxetine 20mg daily. Peds for delivery. For SW PP. #Rh negative: s/p Rhogam on 02/03/25 #HPV 18+: Pap NILM with HPV 18+ on 08/31/24. S/p Colposcopy with low risk impression on 09/16/24. For repeat colposcopy PP. care following vaginal delivery 03/22 Overview (03/24/2025): # ID: Afebrile. No signs/symptoms of infection. # Heme: Hgb 11.1> QBL 500 mL. Hemodynamically stable. #Rh negative: S/p Rhogam on 02/03/25. Infant Rh positive. PP Rhogam given 03/24. #History of PPH: In G3, 2nd degree laceration with PPH due to friable tissue. Vaginal packing and floseal used. Later complicated by formation of introital adhesions, s/p adhesiolysis. # CV/Pulm: Gestational hypertension - Blood pressures well controlled on labetalol 100mg bid. Asymptomatic, denies DELAROSA/RUQ pain/vision changes. CBC/CMP wnl, UPC 0.17. Enrolled in remote blood pressure monitoring. Received text. # GI/: Tolerating PO. Voiding spontaneously. #HPV 18+: Pap NILM with HPV 18+ on 08/31/24. S/p Colposcopy with low risk impression on 09/16/24. For repeat colposcopy PP. # Psych: #Anxiety/depression: History of severe peripartum depression. Provided information for PBHS in early . Previously on fluoxetine, but stopped during . Stable and does not wish to restart her medication at this time. S/p SW PP. # Pain: Controlled with above regimen. # MOC: Declines s/p counseling. # MOF: . Urine drug screen not indicated. Patient informed of results: N/A. # Post DVT prophylaxis: The patient has the following MAJOR risk factors none and the following MINOR risk factors BMI 30-39. SCDs ordered for VTE prophylaxis. # Disposition: Follow up task not sent. Desires discharge home today. Palpitations 12/17/2024 Pap smear for cervical cancer screening 09/04/20 Assessment & Plan (09/04/2024 1:43 PM CDT): Previous cytology/HPV/colposcopy/treatment History: -09/2020: Pap NILM Per ASCCP guidelines, repeat Pap with HPV co-testing due and collected. HPV Vaccine Series: Not received, will discuss Depression affecting 08/31/2024 Assessment & Plan (09/04/2024 1:52 PM CDT): -EPDS: , marked hardly ever on question regarding self-harm -Mood is angry without SI/HI -Not on antidepressant medications. Discussed benefits outweigh risks. Previously prescribed escitalopram in 2020. Advised to let us know if she is amenable to starting medication. -[facility] information provided -Psychiatry referral -ER return precautions reviewed History of gestational hypertension 08/31/2024 Assessment & Plan (08/31/2024 8:43 AM CDT): -Baseline pre-eclampsia labs ordered -Recommend ASA 81mg daily at 12 weeks -Recommend home BP monitoring, checking 1-2x/day after resting for 15 minutes with arm at heart level. If BP is persistently > 140/90, please let office know. If BP > 160/110, call immediately. Also call for headaches that do not improve with pain medications, visual changes, chest pain, shortness of breath, right upper abdominal pain. Rh negative state in antepartum period Assessment & Plan (08/31/2024 8:44 AM CDT): -T&S ordered -Plan for RhoGAM at 28 weeks History of hemorrhage 08/31/2024 Assessment & Plan (08/31/2024 8:41 AM CDT): -Plan for 2 IV sites and 2 units on hold during delivery Constipation during , antepartum 2023 Assessment & Plan (08/31/2024 8:59 AM CDT): -Bowel movements every 3 days with straining -Occasional blood with known hemorrhoids -Recommend increased fiber and water intake as well as miralax Supervision of other normal , antepartu m 08/17/2024 Overview (03/09/2025): -h/o gHTN -h/o PPH -previous c/b introital adhesions, requiring lysis -RH- -anxiety -severe peripartum depression/anxiety last , pt messaged 08/27 with s/s given PBHS info -pap at NOB NILM, HR HPV+ type 18 only-s/p colpo 09/16 and to repeat PP -elevated Bps at 21 weeks-labs WNL, home BP monitoring 2xday - GHTN @ 29wks - MD only, twice weekly testing Growth US/BPP scheduled @ 30wks delivery @ 37 weeks. Weekly labs Lab 100 BID started 03/08 -mild anemia, daily feso4 IOL sched 03/22/25@0800, pt aware [x] Initial BMI: 29.68 [x] Labs: completed [x] Genetic Screening: nml cfdna, declines horizon [x] Baby ASA: yes @ 12wks [x] 1hr GCT at 24-28wks: NML 105 [x] Tdap (27-36wks):BB 02/03/25 [x] Flu Shot: counseled [] RSV Vaccine in season (32.0-36.6): out of season [x] COVID vaccine: counseled [x] Rhogam (if Rh neg): A- BB 02/03/25 [x] GBS at 36 wks: negative [x] : EXCLUSIVE pumping [x] control method: condoms [x] 39 weeks discussion of IOL vs. Expectant management: 37wk IOL [x] Mode of delivery: anticipate [] For C/S bottle of CHG 4% and hand out provided @ 36wks Girl Jayleen, exclusively pumping, Dr. Avelina quintana Teaching: [x] 1st visit [x] 28-30 week [x] 36 week HPV Vaccine counseling (<=26 yo): [] Completed vaccine series [] To be ordered prior to discharge on [] To receive at visit [] Declined s/p counseling [x] Not applicable Assessment & Plan (09/04/2024 1:50 PM CDT): -TVUS for dating and viability completed today. 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 Advised to eat multiple small meals throughout the day, avoid spicy/greasy food, sit upright for 1-2 hours after eating, utilize BRAT diet, use Unisom/B6 for prevention, and try zelalem/peppermint. -Using Ondasetron 2x/day, refill provided Unable to have vaginal sexua l intercourse due to obstruction of vagina 05/22/2021 08/17/2024 Overview (05/22/2021): Added automatically from request for surgery [id number] care following vaginal delivery 04/11/2021 08/17/2024 Overview (04/13/2021): # ID: Afebrile. No signs/symptoms of infection. #COVID-19: Negative #COVID vaccine: Declined s/p counseling # Heme: EBL 800 mL. S/p vaginal packing as well as 1g TXA and 800mcg miso OR intrapartum. Pre-delivery hgb 10.9 > 7.8. Hemodynamically stable. No signs/symtpoms of acute blood loss anemia. # Rh negative status: Mom A negative, Baby A negative, Rhogam not indicated # CV/Pulm: Gestational hypertension - Blood pressures well controlled on no meds. blood pressures have ranged 103-136/51-68 over the last 24 hours with last blood pressure 119/68. Asymptomatic, denies DELAROSA/RUQ pain/vision changes. CBC/CMP wnl, UPC wnl. Consented for home blood pressure monitoring. # GI/: Tolerating PO. Voiding spontaneously. # Pain: Well controlled with pain medications. # Post DVT prophylaxis: The patient has the following MAJOR risk factors none and the following MINOR risk factors BMI 30-39. SCDs ordered for VTE prophylaxis along with early ambulation. # MOC: Declines s/p counseling # MOF: # Mood:stable, bonding with baby # Disposition: Desires discharge home today. Stable for discharge. To schedule [facility] up appointment with: * [facility]) - [facility] - [id number] [place], [place] [address] to schedule an appointment in 1-2 and 6 weeks. Follow up to be scheduled with primary OB. Prior to discharge she was consented and enrolled in [facility] remote blood pressure monitoring. She verified enrollment with receipt of text message and reply of yes. She was provided with home blood pressure monitoring kit for continued home monitoring of her blood pressures and instructed on its use. Her AVS summary has been updated with the discharge instructions on the use of the remote blood pressure monitoring system. Symptoms of preeclampsia have been reviewed. Supervision of other normal , antepartum 08/18/2020 08/17/2024 Overview (04/04/2021): -JAIMEE started Lexapro 01/04-- pt to follow up with PN and outside counselor (see note 01/04). -Headaches: compazine -RH- -IOL sched 04/15/2021 @ 2100, pt aware , covid testing ordered [x] Labs: completed on 12/28/2020 [x] Genetic Screening: will call if interested [x] Baby ASA: n/a [x] 1hr GCT at 24-28wks:118 [x] Tdap (27-36wks):02/05/21 JZ [] Flu Shot: declined 09/13/2020 AH [x] Rhogam (if Rh neg): A- 3/29/21 JZ [x] GBS at 36 wks: GBS+ [x] [] control method: [x] 39 weeks discussion of IOL vs. 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 Obstetrics and Gynecology [address] [facility] 7th Floor [address] [place] [phone] Brandon Cox MD 05/06/2025 Results Follow-Up [address] [phone] Marie Kevin MD Surgical pathology 05/05/2025 6:06 PM CDT - 05/05/2025 11:59 PM CDT Hospital Encounter [facility] PATHOLOGY [address] [facility] 3rd [place] [address] Discharge Disposition: Discharge to home or self care 05/05/2025 3:00 PM CDT Office Visit [facility] Obstetrics and Gynecology [address] [facility] 7th Floor [address] [place] [address] care following vaginal delivery (Primary Dx); HPV (human papilloma virus) infection 04/05/2025 Telephone [facility] Obstetrics and Gynecology [address] [place] [address] Floor [address] [place] [phone] Bonnie Inman 03/22/2025 3:00 PM CDT Anesthesia Event [address] [phone] Sudhakar Blair MD Fernandez, Gabrielle Maria, MD 03/22/2025 8:43 AM CDT - 03/24/2025 8:49 AM CDT Hospital Encounter [address] [phone] Marie Kevin MD Discharge Disposition: Discharge to home or self care 03/18/[address] [phone] Shanti Reynolds RN Outgoing Call 03/17/2025 10:50 AM CDT Lab [address] [address] Gestational hypertension, antepartum 03/17/2025 9:30 AM CDT Office Visit [facility] Obstetrics and Gynecology [address] [place] [address] Floor [address] [place] [phone] Supervision of other normal , antepartum (Primary Dx); Gestational hypertension, antepartum; 36 weeks gestation of 03/17/2025 9:00 AM CDT Clinical Support [facility] Obstetrics and Gynecology [address] [place] [phone] Supervision of other normal , antepartum (Primary Dx); Gestational hyperglycemia 03/17/2025 Results Follow-Up [address] [place] [address] Marlee Varela MD Comprehensive metabolic panel from Last 3 Months Immunizations Immunization Administration Dates Next Due DTaP 10/16/1995, 5,06/20/1995,08/15,1994 DTaP 5 Pertussis 10/16/1995, 5,06/20/1995,08/15,1994 Hep B, Adolescent or Pediatric 03/22/1996,1994 Hib (HbOC) 10/16/1995, 5,1994,04/22 Influenza, Trivalent, IM (MDV) 10/05/2003,2001,08/24/2002 MMR 06/20/1999,07/03/1995 Meningococcal MCV4, Unspecified 08/19/2011 Meningococcal Polysaccharide (Menomune) 08/19/2011 OPV 06/20/1999, 5,1994,04/22 Tdap 02/03/2025,02/05/2021,05/07/2006 Surgical History Surgery Date Site/Laterality Comments APPENDECTOMY 11/10/2011 - 11/09/2012 KNEE ARTHROSCOPY 11/10/2011 - 11/09/2012 Left SHOULDER SURGERY 11/10/2010 - 11/09/2011 Left OTHER SURGICAL HISTORY 09/10/2021 - 10/09/2021 Lysis of adhesions for introitus Medical History Medical History Date Comments Hx Other Medical 1993 8-0 product nl Hx Other Medical 2002 FX Pars L/S spi ne (gymnast) Hx Other Medical 2006 Appendicitis Hx Other Medical 2006 L shoulder surg jhon Hx Other Medical 2011 L knee surgery 10/21 Anxiety Motion sickness Family History Medical History Relation Name Comments Colon cancer Maternal Grandfather Cancer, colon; Other Mother Hemorrhoids; w ith expanded colon (?constipation) Heart disease Other 1 Family history of Heart disease; Other Other 2 Family history of IBS; Other Other 3 Family history of Crohns disease; Other Other 4 Family history of Gall bladder disease; Colon cancer Other 5 Family history of Cancer, colon; Coronary artery disease Other 6 Fami ly history of Coronary artery disease; Diabetes Other 7 Family history of Diabetes mellitus; Hypertension Other 8 Family history of Hypertension; Other Other 9 Colon great gra ndfather maternal; Anesthesia problems Neg Hx Bleeding Disorder Neg Hx Breast cancer Neg Hx Clotting disorder Neg Hx Ovarian cancer Neg Hx Pancreatic cancer Neg Hx Uterine cancer Neg Hx Relation Name Status Comments Maternal Grandfather Alive Mother Alive Other 1 Other 2 Other 3 Other 4 Other 5 Other 6 Other 7 Other 8 Other 9 Social History Tobacco Use Types Packs/Day Years Used Date Smoking Tobacco: Former Cigarettes 0.1 1 2 018 2018 Smokeless Tobacco: Never Comments:couple cigarettes here and there Alcohol Use Standard Drinks/Week Comments Yes 1 (1 standard drink = 0.6 oz pur e alcohol) Social Connection and Isolat ion Panel [NHANES] Answer Date Recorded In a typical week, how many times do you talk on the phone with family, friends, or neighbors? More than three times a week 03/23/2025 How often do you get togethe r with friends or relatives? Three times a week 03/23/2025 How often do you attend chur ch or protestant services? Never 03/23/2025 Do you belong to any clubs o r organizations such as quaker groups, unions, fraternal or athletic groups, or school groups? No 03/23/2025 How often do you attend meet ings of the clubs or organizations you belong to? Never 03/23/2025 Are you , , di vorced, , never , or living with a partner? 03/23/2025 AUDIT-C Answer Date Recorded Q1: How often do you have a drink containing alcohol? Never 08/31/2024 Q2: How many drinks containi ng alcohol do you have on a typical day when you are drinking? Patient does not drink Q3: How often do you have si x or more drinks on one occasion? Never 08/31/2024 Overall Financial Resource Strain (CARDIA) Answe r Date Recorded How hard is it for you to pa y for the very basics like food, housing, medical care, and heating? Not hard at all 03/23/2025 Exercise Vital Sign Answer Date Recorde d On average, how many days pe r week do you engage in moderate to strenuous exercise (like a brisk walk)? 0 days 08/31/2024 On average, how many minutes do you engage in exercise at this level? 0 min 08/31/2024 Hunger Vital Sign Answer Date Recorded Within the past 12 months, y ou worried that your food would run out before you got the money to buy more. Never true 03/23/20 25 Within the past 12 months, t he food you bought just didn't last and you didn't have money to get more. Never true 03/23/2025 PRAPARE - Transportation Answer Date Re corded In the past 12 months, has l ack of transportation kept you from medical appointments or from getting medications? No 03/10 In the past 12 months, has l ack of transportation kept you from meetings, work, or from getting things needed for daily living? No 03/23/2025 Armona Depression Scale Answer Date Recorded Armona Depression Scale Total 2 05/05/2025 The thought of harming myself has occurred to me . Never 05/05/2025 Housing Stability Vital Sign Answer Darryl e Recorded In the last 12 months, was t here a time when you were not able to pay the mortgage or rent on time? No 03/23/2025 In the past 12 months, how m any times have you moved where you were living? 0 03/23/2025 At any time in the past 12 m ont, were you homeless or living in a fci (including now)? No 03/23/2025 Personal Safety Answer Date Recorded Have you ever been in or are you currently in a harmful physical or emotional relationship or is someone making you feel afraid or unsafe? Denies 03/22/2025 Education Answer Date Recorded What is the highest level of school you have completed or the highest degree you have received? 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 Gender Identity Not on file Sexual Orientation Not on file Occupation Industry Job Start Date Job End Date [employer] Not on file Not on file No t on file Obstetrics History Para Term AB IAB SAB Ectopic Multiple Livin g Live Births 4 2 2 2 2 0 2 2 Date Outcome GA Total Labor Labor/2nd/3rd Weight Sex Type Anes PTL Zeina A1 A5 Name Clin SAB 2017 SAB SAB 2020 Term 38w 5d 4h 47m 4h 04m/0h 40m/0h 03m 3.13 kg (6 lb 14.4 oz) F Vag-Sp ont Epidur al N Livin g 8 9 SKELT ON,GI RLSHE LBY David Sterling MD Complications:Post He morrhage Delivery Location:[facility] Main C ampus ([facility] 58LD) 2024 Term 37w 0d 0h 39m 0h 34m/0h 05m 3.52 kg (7 lb 12.2 oz) F Vagina l Epidur al N Livin g 7 8 Isaías a Cressona Skelt on David Sterling MD Complications:None Delivery Location:[facility] Main C ampus ([facility] 58LD) Comments [id number]-Girl name TBJessica -38w4d presented to [facility] for rule out preeclampsia. Preg c/b gHTN with multiple mild range BPs, so staying for IOL. Had a 2nd degree which was very bleeding/oozing. EBL was 800ml and had to pack with Steven seal soaked packing. Melgar in place. Hgb 10 after delivery, checking 6p CBC. Was symptomatic right after delivery and recieved bolus. Currently normal BPs and normal HR, she was kept on labor a few extra hours to watch. when she got up to use the restroom the packing fell out-she was observed and was hemostatic so it was not replaced (the melgar remained just in case, though). [id number] for gHTN. 2nd degree. Baby girl Jayleen Last Filed Vital Signs Vital Sign Reading Time Taken Comments Blood Pressure 123/86 05/05/2025 2:51 PM CDT Pulse 68 03/24/2025 7:23 AM CDT Temperature 36.5 C (97.7 F) 03/24/2025 7:23 AM CDT Respiratory Rate 18 03/24/2025 7:23 AM CDT Oxygen Saturation 97% 03/24/2025 7:23 AM CDT Inhaled Oxygen Concentration - - Weight 96.2 kg (212 lb) 05/05/2025 2:51 PM CDT Height 175.3 cm (5' 9) 05/05/2025 2:51 PM CDT Body Mass Index 31.31 05/05/2025 2:51 PM CDT Plan of Treatment Health Maintenance Due Date Last Done Comments Varicella Vaccines (1 of 2 - 13+ 2-dose series) 2007 Regular Well Visit/Exam 18-64 02/16/2012 HPV Vaccines (1 - 3-dose SCDM series) 2021 Influenza Vaccine (#1) 2025 3, 09/24/2002, 08/24/2002 Cervical Cancer Screening 08/31/20252023, 08/31/2024, 09/13/2020 Depression Screening 05/05/2026 05/05/2025 DTaP/Tdap/Td Vaccine (7 - Td or Tdap) 02/03/2035 02/03/2025, 02/05/2021, 05/07/2006, Additional history exists Hepatitis B Screening Completed 03/22/1996, 995 Hepatitis C Screening Completed 08/31/2024 Pneumococcal vaccine <65 Aged Out No longer eligible based on patient's age to complete this topic Procedures Procedure Name Priority Date/Time Associated Diagnosis Comments SURGICAL PATHOLOGY Routine 05/05/2025 4: 13 PM CDT POCT HCG, URINE Routine 05/05/2025 3:25 PM CDT care following vaginal delivery HPV (human papilloma virus) infection RESPIRATORY PATHOGEN PANEL Routine 03/24/2025 2:24 AM CDT BLEED SCREEN Routine 03/23/2025 3: 33 PM CDT ABO/RH Routine 03/23/2025 3:29 PM CDT RH IMMUNE GLOBULIN EVAL Timed 03/23/2025 2:26 PM CDT SURGICAL PATHOLOGY Routine 03/22/2025 9: 56 PM CDT ANESTHESIA EPIDURAL BLOCK Routine 03/22/2025 5:05 PM CDT ANTIBODY IDENTIFICATION STAT 03/22/2025 11:39 AM CDT PROTEIN / CREATININE RATIO, URINE, RANDOM Routine 03/22/2025 9:30 AM CDT EGFR STAT 03/22/2025 9:12 AM CDT COMPREHENSIVE METABOLIC PANEL STAT 03/22/2025 9:12 AM CDT CBC WITHOUT DIFFERENTIAL STAT 03/22/2025 9:12 AM CDT TYPE AND SCREEN STAT 03/22/2025 9:12 AM CDT RPR STAT 03/22/2025 9:12 AM CDT EGFR Routine 03/17/2025 10:50 AM CDT Gestational hypertension, antepartum CBC WITHOUT DIFFERENTIAL Routine 03/17/2025 10:50 AM CDT Gestational hypertension, antepartum COMPREHENSIVE METABOLIC PANEL Routine 03/17/2025 10:50 AM CDT Gestational hypertension, antepartum URIC ACID Routine 03/17/2025 10:50 AM CDT Gestational hypertension, antepartum PROTEIN / CREATININE RATIO, URINE, RANDOM Routine 03/17/2025 10:50 AM CDT Gestational hypertension, antepartum NONSTRESS TEST Routine 03/17/2025 10:15 AM CDT Supervision of other normal , antepartum Gestational hyperglycemia HEPATITIS C ANTIBODY Routine 08/31/2024 3:23 PM CDT Supervision of other normal , antepartum HIGH RISK HPV DNA DETECTION WITH GENOTYPING Routine 08/31/2024 9:34 AM CDT Pap smear for cervical cancer screening from Last 3 Months or Most Recently Relevant to Health Maintenance Results * Surgical pathology (05/05/2025 4:13 PM CDT) Cervix, biopsy 05/05/2025 4: 13 PM CDT 05/05/2025 5:37 PM CDT Narrative 05/06/2025 9:47 AM CDT EPIC results best viewed via link to PDF [facility] [place] [address] Note to Patients: This report may contain a detailed description of human tissue sent by a health care provider to the laboratory for pathologic evaluation. The content of this report is essential for diagnosis and may provide important critical findings. This information may be unfamiliar to patients to review without a medical professional present. It is advised that the patient review this report in the presence of a health care provider who can answer questions and explain the details. SURGICAL PATHOLOGY REPORT FINAL Patient Name: SUKI EVANS Gender: F : 1995 (Age: 30) Address: [address] [place], [place] [id number] Hospital #: [id number] Taken:05/05/2025 Received:05/05/2025 Reported: 05/06/2025 Patient Type: [facility] SPECIMEN Service: UNKNOWN Location: Physician(s): Marie Kevin M.D. Diagnosis: A. Ectocervix, 2:00, biopsy - Low-grade squamous intraepithelial lesion (LSIL, ELIE 1) - Acute and chronic cervicitis - No evidence of high-grade dysplasia or malignancy B. Endocervix, curettage - Benign endocervical mucosa - No evidence of dysplasia or malignancy [facility]/05/06/2025 08:37 By this signature, I attest that the above diagnosis is based upon my personal examination of the slides(and/or other material indicated in the diagnosis). Christopher Guadarrama M.D., Ph.D. Report Electronically Reviewed and Signed Out By Christopher Guadarrama M.D., Ph.D. 05/06/2025 09:47:46 Microscopic Description and Comment: Microscopic examination substantiates the above cited diagnosis. Rhonda Kwan History: The patient is a 30-year-old woman presenting for HPV infection. Operative procedure: Ectocervical biopsy and endocervical curettings. Specimen(s) Received: A: Ectocervix 2o'clock B: Endocervical curettings Gross Description: Received in two formalin jars labeled with the patient's identifiers. A. Labeled ectocervix 2:00 and consists of one chin-pink fragment(s) of soft tissue measuring 0.4 cm in greatest dimension. Labeled A1. Jar 0. B. Labeled endocervical curettings is an aggregate of mucinous material and possible included tissue measuring 2.9 x 2.3 x 0.2 cm in aggregate. Labeled B1. Jar 0. elsw/05/05/2025 18:22 PA(s): Tayler Grullon By this signature, I attest that the above diagnosis is based upon my personal examination of the slides(and/or other material). Addenda/Procedures The performance characteristics of some immunohistochemical stains, fluorescence in-situ hybridization tests and immunophenotyping by flow cytometry cited in this report (if any) were determined by the Surgical Pathology and Flow Cytometry Departments at [facility] as part of an ongoing quality assurance qa lab technician program and in compliance with federally mandated regulations drawn from the Clinical Laboratory Improvement Act of 1988 (CLIA '88). Some of these tests rely on the use of analyte specific reagents and are subject to specific labeling requirements by the US Food and Drug Administration. Such diagnostic tests may only be performed in a facility that is certified by the Department of Health and Human Services as a high complexity laboratory under CLIA '88. The FDA has determined that such clearance or approval is not necessary. This test is used for clinical purposes. It should not be regarded as investigational or for research. Nevertheless, federal rules concerning the medical use of analyte specific reagents require that the following disclaimer be attached to the report: This test was developed and its performance characteristics determined by the Surgical Pathology and Flow Cytometry Departments of [facility]. It has not been cleared or approved by the U. S. Food and Drug Administration. IMAGES AND SCANNED DOCUMENTS, IF INCLUDED, ONLY VIEWABLE IN PDF VERSION OF REPORT us Marie Kevin MD LAB PATHOLOGY ORDERAB LES Final Result * POCT hCG, urine (05/05/2025 3:25 PM CDT) HCG, ur, POC Negative Negative Lot Number [id number] QC Backgroud Clear Acceptable QC Control Line Acceptable Urine 05/05/2025 3:25 PM CDT Mraie Kevin MD POINT OF CARE TEST OR DERABLES Final Result * Respiratory pathogen panel Nasopharyngeal (03/24/2025 2:24 AM CDT) Pathologist [facility] Influenza A RNA Not Detected Not Detected Influenza B RNA Not Detected Not Detected [facility] RSV RNA Not Detected Not Detected [facility] COVID-19 RNA Not Detected Not Detected [facility] Coronavirus 229E RNA Not Detected Not Detected [facility] Coronavirus HKU1 RNA Not Detected Not Detected [facility] Coronavirus NL63 RNA Not Detected Not Detected [facility] Coronavirus OC43 RNA Not Detected Not Detected [facility] Adenovirus DNA Not Detected Not Detected [facility] Metapneumovirus RNA Not Detected Not Detected [facility] Rhinovirus/Enterov irus RNA Not Detected Not Detected [facility] Parainfluenza 1 RNA Not Detected Not Detected [facility] Parainfluenza 2 RNA Not Detected Not Detected [facility] Parainfluenza 3 RNA Not Detected Not Detected [facility] Parainfluenza 4 RNA Not Detected Not Detected [facility] B. pertussis DNA Not Detected Not Detected [facility] B. parapertussis DNA Not Detected Not Detected [facility] C. pneumoniae DNA Not Detected Not Detected [facility] M. pneumoniae DNA Not Detected Not Detected [facility] Nasopharyngeal 03/24/2025 2: 24 AM CDT 03/24/2025 2:56 AM CDT Narrative [facility] - 03/24/2025 3:58 AM CDT Is the Patient experiencing symptoms consistent with COVID?->Unknown Surveillance testing for transplant patient?->No Interpretive Data The [employer] FilmArray Respiratory Panel (RP2.1) assay is a multiplexed real-time PCR based nucleic acid test capable of simultaneous qualitative detection and identification of multiple respiratory viral and bacterial nucleic acids, including SARS Coronavirus 2 (the causative agent of COVID-19). The following bacteria, viruses and virus subtypes can be identified using the FilmArray RP2.1 assay: Bordetella pertussis, Bordetella parapertussis, Chlamydia pneumoniae, Mycoplasma pneumoniae, Adenovirus, SARS Coronavirus 2, seasonal coronaviruses (Coronavirus HKU1, Coronavirus NL63, Coronavirus 229E, and Coronavirus OC43), Influenza A, Influenza A subtype H1, Influenza A subtype H3, Influenza A subtype 2009 H1, Influenza B, Metapneumovirus, Parainfluenza 1, Parainfluenza 2, Parainfluenza 3, Parainfluenza 4, RSV, Rhinovirus/Enterovirus. Due to the genetic similarity between human Rhinovirus and Enterovirus, the FilmArray RP2.1 assay cannot reliably differentiate them. Coronavirus OC43 may cross-react with some isolates of Coronavirus HKU1. A dual positive result may be due to cross-reactivity or may indicate a co- infection. The detection and identification of specific viral and bacterial nucleic acids from individuals exhibiting signs and symptoms of a respiratory infection aids in the diagnosis of respiratory infection if used in conjunction with other clinical and epidemiological information. The results of this test should not be used as the sole basis for diagnosis, treatment, or other management decisions. Negative results in the setting of a respiratory illness may be due to infection with pathogens that are not detected by this test. Positive results do not rule out infection/co-infection with other organisms. The agent(s) detected by the FilmArray RP2.1 may not be the definite cause of disease. Additional testing (lab, imaging, etc.) may be necessary when evaluating a patient with possible respiratory tract infection. The FilmArray RP2.1 assay has FDA clearance for testing of EXTRUDER OPERATOR swabs. The performance of additional specimen types has been assessed by the performing laboratory. The performance characteristics of this assay have been determined by [facility] Infectious Disease [facility]. Current interpretive data was last revised on 22. Marie Kevin MD LAB MICROBIOLOGY - [facility] ORDERABLES Final Result [facility] Department [place] [address] * Bleed Screen (03/23/2025 3:33 PM CDT) Bleed Screen Negative Blood 03/23/2025 3:33 PM CDT 03/23/2025 3:33 PM CDT Cici Teresa MD LAB BLOOD BANK TEST ORD ERABLES Final Result Performing Organization Address [facility] Co de Phone Number [facility] [place] [address] * ABO/Rh (03/23/2025 3:29 PM CDT) ABO Rh A Negative Blood 03/23/2025 3:29 PM CDT 03/23/2025 3:29 PM CDT Cici Teresa MD LAB BLOOD BANK TEST ORD ERABLES Final Result Performing Organization Address [facility] de Phone Number [facility] [employer] [place] [address] * Rh Immune Globulin Eval (03/23/2025 2:26 PM CDT) RhIg Eligible Yes, eligible RhIg Administration 1 vial of Rh Immune Globulin (300 mcg dose) [facility] Blood 03/23/2025 2:26 PM CDT 03/23/2025 2:44 PM CDT Narrative [facility] - 03/23/2025 3:58 PM CDT Number of weeks ?->20 weeks or greater antibody screen result:->Negative Rhogam given?->Given Date Given?->02/03/25 Number of vials requested:->1 Marie Kevin MD LAB BLOOD BANK TEST O RDERABLES Final Result Performing Organization Address [facility] [place] [address] * Surgical pathology (03/22/2025 9:56 PM CDT) Tissue (Placenta) 03/22/2025 9:56 PM CDT 03/23/2025 8:58 AM CDT Narrative PATHOLOGY [facility] - 03/28/2025 11:43 AM CDT EPIC results best viewed via link to PDF [facility] [place] [address] Note to Patients: This report may contain a detailed description of human tissue sent by a health care provider to the laboratory for pathologic evaluation. The content of this report is essential for diagnosis and may provide important critical findings. This information may be unfamiliar to patients to review without a medical professional present. It is advised that the patient review this report in the presence of a health care provider who can answer questions and explain the details. SURGICAL PATHOLOGY REPORT FINAL Patient Name: SUKI EVANS Gender: F : 1995 (Age: 30) Address: [address] [place], [place] [id number] Hospital #: [id number] Taken:03/22/2025 Received:03/23/2025 Reported: 03/28/2025 Patient Type: [facility] Inpatient Service: Obstetrics Location: [place] [address] Physician(s): Hermes Solano PA-C Diagnosis: A. Placenta, vaginal delivery - 516.8 grams, appropriate for gestational age (AGA 10-90th %ile), term placenta - Villous maturation consistent with gestational age - Trivascular cord with no histopathologic abnormality /03/28/2025 09:01 By this signature, I attest that the above diagnosis is based upon my personal examination of the slides(and/or other material indicated in the diagnosis). Meng Tsai M.D. Report Electronically Reviewed and Signed Out By Meng Tsai M.D. 03/28/2025 11:43:24 Microscopic Description and Comment: Microscopic examination substantiates the above cited diagnosis. Hayden Ignacio D.O. History: The patient is a 30-year-old woman presenting at 37w0d weeks gestation. Operative procedure: Vaginal delivery. Specimen(s) Received: A: Placenta, third trimester Gross Description: Received in formalin, labeled with the patient s identifiers and Placenta - Dimensions: 15 x 14 x 3.5 cm, 516.8 g - Membranes: Thin, semitranslucent - Membrane insertion: Circumvallate - Cord: Attached-19 cm in length, 1.2 cm in diameter. Detached-13 cm in length, 1.2 cm in diameter Three vessels Eccentric insertion No knots or coiling - Surface: Blue-lennon, arborizing - Maternal Surface: Intact and complete - Cut surface: Red-chin spongy, with no lesions Summary of sections: A1 membranes and umbilical cord A2-A4 placental disc Jar: 3 /03/24/2025 10:48 Gross Resident:Hayden Ignacio D.O. By this signature, I attest that the above diagnosis is based upon my personal examination of the slides(and/or other material). Addenda/Procedures The performance characteristics of some immunohistochemical stains, fluorescence in-situ hybridization tests and immunophenotyping by flow cytometry cited in this report (if any) were determined by the Surgical Pathology and Flow Cytometry Departments at [facility] as part of an ongoing quality assurance qa lab technician program and in compliance with federally mandated regulations drawn from the Clinical Laboratory Improvement Act of 1988 (CLIA '88). Some of these tests rely on the use of analyte specific reagents and are subject to specific labeling requirements by the US Food and Drug Administration. Such diagnostic tests may only be performed in a facility that is certified by the Department of Health and Human Services as a high complexity laboratory under CLIA '88. The FDA has determined that such clearance or approval is not necessary. This test is used for clinical purposes. It should not be regarded as investigational or for research. Nevertheless, federal rules concerning the medical use of analyte specific reagents require that the following disclaimer be attached to the report: This test was developed and its performance characteristics determined by the Surgical Pathology and Flow Cytometry Departments of [facility]. It has not been cleared or approved by the U. S. Food and Drug Administration. IMAGES AND SCANNED DOCUMENTS, IF INCLUDED, ONLY VIEWABLE IN PDF VERSION OF REPORT Marie Kevin MD LAB PATHOLOGY ORDERAB LES Final Result PATHOLOGY [facility] IO [address] Floor [place], [place] [phone] * Epidural Block (03/22/2025 5:05 PM CDT) Narrative Ivonne Pratt DO - 03/22/2025 5:05 PM CDT Ivonne Pratt DO 03/22/2025 5:06 PM Epidural Block Patient location: L&D Reason for block: labor analgesia Staff: Supervising provider: Sudhakar Blair MD Placed by: Resident: Ivonne Pratt DO Procedure prep: Preprocedure checklist: patient identified, procedure contraindications assessed, procedure consent obtained, IV checked, risks, benefits and alternatives discussed and timeout performed Patient Position: sitting Procedure performed while patient: awake Monitoring: oximetry and blood pressure Prep solution: chlorhexadine/alcohol PPE: provider hat/mask, sterile gloves and sterile drape Skin infiltrated with lidocaine 1%: yes Epidural: Approach: midline Imaging guidance used: no Location: L4-5 Number of attempts:1 Epidural needle: Injection technique: BARNEY saline Needle type: Tuohy Needle gauge: 18 G Needle length: 9 cm Loss of resistance: 5 cm Catheter: Catheter type: multi-orifice. Catheter at skin depth: 11 cm Negative aspiration of blood: no Negative aspiration of CSF: no Test dose: negative Assessment: Sensory level - left: full eval pending Sensory level - right: full eval pending Events: patient tolerated procedure well with no complications us Sally Ann MD ANESTHESIA ORDERABLES Final Result * Antibody identification (03/22/2025 11:39 AM CDT) Antibody ID 1 Passive Anti-D Blood 03/22/2025 11:3 9 AM CDT 03/22/2025 11:39 AM CDT us Marie Kevin MD LAB BLOOD BANK TEST O RDERABLES Final Result [facility] [place] [address] * Protein / creatinine ratio, urine, random (03/22/2025 9:30 AM CDT) Protein, ur, quant 24.0 mg/dL Comment: Interpretive Data No reference range established. Current interpretive data was last revised 2019. Creatinine Ur 156.9 mg/dL [facility] Comment: Interpretive Data No reference range established. Current interpretive data was last revised 2019. Protein/creatinin e ratio 153.0 0.0 - 180.0 mg/g CR [facility] Urine 03/22/2025 9:30 AM CDT 03/22/2025 10:32 AM CDT us Marie Kevin MD LAB URINE ORDERABLES Final Result [facility] [place] [address] * eGFR (03/22/2025 9:12 AM CDT) eGFR >90 >=60 mL/min/1. 73 m2 Comment: Interpretive Data Reference Interval Normal >/= 90 mL/min/1.73m2 Mildly decreased* 60 - 89 mL/min/1.73m2 Mildly to moderately decreased 45 - 59 mL/min/1.73m2 Moderately to severely decreased 30 - 44 mL/min/1.73m2 Severely decreased 15 - 29 mL/min/1.73m2 Kidney Failure < 15 mL/min/1.73m2 *Relative to young adult level Estimated glomerular filtration rate is determined by the 2020 CKD-EPI equation recommended by the National Kidney Foundation (A Unifying Approach to GFR Estimation: Recommendations of the NKF-ASK Task Force on Reassessing the Inclusion of Race in Diagnosing Kidney Disease, JASN 2020). The CKD-EPI equation should not be used for patients with unstable renal function and has not been validated in children and those over 70. Current interpretive data was last reviewed 2021. Blood 03/22/2025 9:12 AM CDT 03/22/2025 10:32 AM CDT Marie Kevin MD LAB BLOOD ORDERABLES Final Result [facility] [place] [address] * RPR Blood (03/22/2025 9:12 AM CDT) [facility] RPR Nonreactive Nonreactive Blood 03/22/2025 9:12 AM CDT 03/22/2025 10:32 AM CDT Marie Kevin MD LAB MICROBIOLOGY - [facility] ORDERABLES Final Result Performing Organization Address [facility] Co de Phone Number [facility] [place] [address] * (ABNORMAL) CBC without differential (03/22/2025 9:12 AM CDT) [facility] WBC 9.20 3.80 - 9.90 K/cumm Hgb 11.1(L) 11.9 - 15.5 g/dL [facility] Hct 33.5(L) 35.6 - 45.5 % [facility] Plt 313 150 - 400 K/cumm [facility] MPV 9.7 9.1 - 12.3 fL [facility] RBC 4.11 3.90 - 5.20 M/cumm [facility] MCV 81.5 81.3 - 96.4 fL [facility] MCH 27.0(L) 27.1 - 33.3 pg [facility] MCHC 33.1 32.3 - 35.7 g/dL [facility] RDW CV 13.6 11.1 - 14.9 % [facility] RDW SD 39.8 35.7 - 48.1 fL [facility] NRBC abs 0.00 0.00 - 0.01 K/cumm [facility] Blood 03/22/2025 9:12 AM CDT 03/22/2025 10:32 AM CDT Marie Kevin MD LAB BLOOD ORDERABLES Final Result Performing Organization Address [facility] [place] [address] * (ABNORMAL) Type and screen (03/22/2025 9:12 AM CDT) Pathologist [facility] Raul, indirect Positive(A) ABO Rh A Negative [facility] Blood 03/22/2025 9:12 AM CDT 03/22/2025 10:32 AM CDT Narrative [facility] - 03/22/2025 11:39 AM CDT Has the patient had Daratumumab or Isatuximab in the past 6 months?->Unknown Marie Kevin MD LAB BLOOD BANK TEST O RDERABLES Final Result Performing Organization Address [facility] de Phone Number [facility] [place] [address] * (ABNORMAL) Comprehensive metabolic panel (03/22/2025 9:12 AM CDT) [facility] Sodium 137 135 - 145 mmol/L Potassium, pl 3.5 3.3 - 4.9 mmol/L [facility] Chloride 105 97 - 110 mmol/L [facility] CO2 21(L) 22 - 32 mmol/L [facility] Anion gap 11 2 - 15 mmol/L [facility] BUN 6 6 - 25 mg/dL [facility] Creatinine 0.59(L) 0.60 - 1.10 mg/dL [facility] Glucose 105 70 - 199 mg/dL [facility] Comment: Interpretive Data Fasting glucose >/= 126 mg/dl is diagnostic for diabetes. Fasting is defined as no caloric intake for at least 8 hours. Fasting glucose between 100 mg/dl to 125 mg/dl is diagnostic of prediabetes. In a patient with classic symptoms of hyperglycemia or hyperglycemic crisis, a random glucose >/= 200 mg/dl is diagnostic for diabetes. In the absence of unequivocal hyperglycemia, results should be confirmed by repeat testing. The classification and Diagnosis of Diabetes Diabetes Care 2021; 46: S19-S40. Current interpretive data was last revised 2022. Calcium 8.4(L) 8.5 - 10.3 mg/dL [facility] Bilirubin, total 0.2 0.1 - 1.2 mg/dL [facility] Protein, pl 7.3 6.5 - 8.5 g/dL [facility] Albumin 3.5 3.5 - 5.0 g/dL [facility] Alk phos 124 40 - 130 Units/L [facility] ALT 9 7 - 45 Units/L [facility] AST 16 10 - 45 Units/L [facility] Blood 03/22/2025 9:12 AM CDT 03/22/2025 10:32 AM CDT us Marie Kevin MD LAB BLOOD ORDERABLES Final Result [facility] [place] [address] * eGFR (03/17/2025 10:50 AM CDT) eGFR >90 >=60 mL/min/1. 73 m2 Comment: Interpretive Data Reference Interval Normal >/= 90 mL/min/1.73m2 Mildly decreased* 60 - 89 mL/min/1.73m2 Mildly to moderately decreased 45 - 59 mL/min/1.73m2 Moderately to severely decreased 30 - 44 mL/min/1.73m2 Severely decreased 15 - 29 mL/min/1.73m2 Kidney Failure < 15 mL/min/1.73m2 *Relative to young adult level Estimated glomerular filtration rate is determined by the 2020 CKD-EPI equation recommended by the National Kidney Foundation (A Unifying Approach to GFR Estimation: Recommendations of the NKF-ASK Task Force on Reassessing the Inclusion of Race in Diagnosing Kidney Disease, JASN 2020). The CKD-EPI equation should not be used for patients with unstable renal function and has not been validated in children and those over 70. Current interpretive data was last reviewed 2021. Blood 03/17/2025 10:5 0 AM CDT 03/17/2025 11:45 AM CDT Marlee Varela MD LAB BLOOD ORDERABLES Final Re sult Performing Organization Address [facility] de Phone Number [facility] [place] [address] * Protein / creatinine ratio, urine, random (03/17/2025 10:50 AM CDT) [facility] Protein, ur, quant 17.8 mg/dL Comment: Interpretive Data No reference range established. Current interpretive data was last revised 2019. Creatinine Ur 107.2 mg/dL [facility] Comment: Interpretive Data No reference range established. Current interpretive data was last revised 2019. Protein/creatinin e ratio 166.0 0.0 - 180.0 mg/g CR [facility] Urine 03/17/2025 10:5 0 AM CDT 03/17/2025 11:33 AM CDT Marlee Varela MD LAB URINE ORDERABLES Final Re sult Performing Organization Address [facility] de Phone Number [facility] [place] [address] * (ABNORMAL) CBC without differential (03/17/2025 10:50 AM CDT) [facility] WBC 10.20(H) 3.80 - 9.90 K/cumm Hgb 11.0(L) 11.9 - 15.5 g/dL [facility] Hct 34.5(L) 35.6 - 45.5 % [facility] Plt 300 150 - 400 K/cumm [facility] MPV 9.3 9.1 - 12.3 fL [facility] RBC 4.14 3.90 - 5.20 M/cumm [facility] MCV 83.3 81.3 - 96.4 fL [facility] MCH 26.6(L) 27.1 - 33.3 pg [facility] MCHC 31.9(L) 32.3 - 35.7 g/dL [facility] RDW CV 13.3 11.1 - 14.9 % [facility] RDW SD 40.0 35.7 - 48.1 fL [facility] NRBC abs 0.00 0.00 - 0.01 K/cumm [facility] Blood 03/17/2025 10:5 0 AM CDT 03/17/2025 11:33 AM CDT Marlee Varela MD LAB BLOOD ORDERABLES Final Re sult Performing Organization Address City/[facility]/ZIP Co de Phone Number [facility] [place] [address] * Uric acid (03/17/2025 10:50 AM CDT) [facility] Uric acid 4.4 2.5 - 7.0 mg/dL Blood 03/17/2025 10:5 0 AM CDT 03/17/2025 11:33 AM CDT Marlee Varela MD LAB BLOOD ORDERABLES Final Re sult Performing Organization Address City/[facility] Co de Phone Number [facility] [place] [address] * Comprehensive metabolic panel (03/17/2025 10:50 AM CDT) Pathologist [facility] Sodium 138 135 - 145 mmol/L Potassium, pl 3.6 3.3 - 4.9 mmol/L [facility] Chloride 105 97 - 110 mmol/L [facility] CO2 25 22 - 32 mmol/L [facility] Anion gap 8 2 - 15 mmol/L [facility] BUN 7 6 - 25 mg/dL [facility] Creatinine 0.74 0.60 - 1.10 mg/dL [facility] Glucose 106 70 - 199 mg/dL [facility] Comment: Interpretive Data Fasting glucose >/= 126 mg/dl is diagnostic for diabetes. Fasting is defined as no caloric intake for at least 8 hours. Fasting glucose between 100 mg/dl to 125 mg/dl is diagnostic of prediabetes. In a patient with classic symptoms of hyperglycemia or hyperglycemic crisis, a random glucose >/= 200 mg/dl is diagnostic for diabetes. In the absence of unequivocal hyperglycemia, results should be confirmed by repeat testing. The classification and Diagnosis of Diabetes Diabetes Care 2021; 46: S19-S40. Current interpretive data was last revised 2022. Calcium 9.1 8.5 - 10.3 mg/dL [facility] Bilirubin, total 0.2 0.1 - 1.2 mg/dL [facility] Comment:Reviewed Protein, pl 7.0 6.5 - 8.5 g/dL [facility] Albumin 3.5 3.5 - 5.0 g/dL [facility] Alk phos 120 40 - 130 Units/L [facility] ALT 8 7 - 45 Units/L [facility] AST 16 10 - 45 Units/L [facility] Blood 03/17/2025 10:5 0 AM CDT 03/17/2025 11:33 AM CDT Marlee Varela MD LAB BLOOD ORDERABLES Final Re sult [facility] [place] [address] * nonstress test - (03/17/2025 10:15 AM CDT) Brandon Cox MD OB GYNE ORDERABLES Final Result * Hepatitis C antibody Blood (08/31/2024 3:23 PM CDT) Hep C Ab NON-REACTI VE NON-REACT [facility] Comment: HCV antibody was non-reactive. There is no laboratory evidence of HCV infection. In most cases, no further action is required. However, if recent HCV exposure is suspected, a test for HCV RNA (test code 47703) is suggested. For additional information please refer to http://education.KiteRead[employer].E[employer]ative [employer]/faq/OJF36v9 (This link is being provided for informational/ educational purposes only.) Blood 08/31/2024 3:23 PM CDT 08/31/2024 3:23 PM CDT Narrative [facility] - 09/02/2024 11:49 PM CDT FASTING:NO FASTING: NO Brandon Cox MD LAB MICROBIOLOGY - GENERA L ORDERABLES Final Result [facility] [address] [place] [address] * (ABNORMAL) High Risk HPV DNA Detection with Genotyping (Molecular component) (08/31/2024 9:34 AM CDT) Pathologist [facility] HPV HR 16 Not Detected Not Detected [facility] HPV HR 18 Detected(A) Not Detected [facility] HPV HR Non 16/18 Not Detected Not Detected [facility] Comment: Interpretive Data Nucleic acid amplification for detection of high-risk Human Papilloma virus (HPV) is performed by the Jaret Maggie 6800 HPV test. This assay specifically detects HPV-16 and HPV-18 genotypes. The following HPV genotypes are detected as high-risk HPV: HPV-31, 33, 35, ,39, 45, 51, 52, 56, 58, 59, 66, and 68. This assay has been approved by the [place] Food and Drug Administration for detection of HPV in cervical specimens collected by a physician using an endocervical brush/spatula or cervical broom and placed in the ThinPrep Pap Test PreservCyt collection containers. The performance characteristics of this test have been verified by the [facility] Molecular Infectious Disease laboratory. Correlate with separately reported cytology results, as applicable. Interpretive data last revised 23 Endocervical 08/31/2024 9:34 AM CDT 08/31/2024 1:54 PM CDT Narrative [facility] - 09/01/2024 9:46 AM CDT Clinical history and diagnosis->No history of abnormal Testing type->Screening Last menstrual period (date if known)->07/06/24 Menstrual status-> Brandon Cox MD LAB BODY FLUIDS AND STOOL S ORDERABLES Final Result [facility] [place] [address] [facility] from Last 3 Months or Most Recently Relevant to Health Maintenance [place] Sub[place] Plan / Payer (Ef fective 2019-Present) Name:Suki Evans Relation to Subscriber:Self Name:Suki Evans Payer ID:[id number] (NAIC) Type:HEALTHCARE/EXCHANGE Address: [address] [place] [employer] A[employer] Advance Directives For more information, please contact: [phone] * Full Code (Latest Code Status on File) Date Activated Date Inactivated Comments 03/22/2025 11:17 PM 03/24/2025 12:49 PM * Full Code Date Activated Date Inactivated Comments 03/22/2025 8:47 AM 03/22/2025 11:17 PM Full CPR in case of cardiopulmonary arrest * Full Code Date Activated Date Inactivated Comments 04/11/2021 2:25 PM 04/13/2021 7:35 PM * Full Code Date Activated Date Inactivated Comments 04/10/2021 5:25 PM 04/11/2021 2:25 PM Full CPR in ca se of cardiopulmonary arrest Care Teams Patrol Inspector Relationship Specialty Start Date End Date Jessica Sloan PA [address] [address] PCP - General 09/25/17
--- OUTSIDE RECORDS SUMMARY | 2025-06-16 14:06 | XMS_ITS | Encounter Summary ---
Author Organization [facility] Address [address] [facility] [place] [address] Phone Care Team Providers Care Solar Field Service Technician Name Role Phone Jessica Sloan Primary Care Provider + Peetr Jade MD Unavailable [phone] Reason for Visit * Reason Onset Date Comments Fever 06/16/2025 Dizziness 06/16/2025 Encounter Details Date Type Department Care Team (Late st Contact Info) Description 06/16/2025 Nurse Triage [facility] [address] [place] [id number] Jessica Sloan, PAC [address] [place] [address] Fever; Dizziness Social History Tobacco Use Types Packs/Day Years Used Date Smoking Tobacco: Former Smokeless Tobacco: Never Comments:only if I'm going out, dont smoke anyother time. Alcohol Use Standard Drinks/Week Comments Yes 2 (1 standard drink = 0.6 oz pur e alcohol) saurav andino or alexandre kim [facility] Utilities Answer Date Recorded In the past 12 months has [employer] electric, gas, oil, or water company threatened [...] week 05/04/2024 How often do you attend jainism or yarsani serv ices? Never 05/04/2024 Do you belong to any clubs o r organizations such as jainism groups, unions, fraternal or athletic groups, or [...] Total Score - Questions 1-9 1 05/11 [facility] - Occupational Stress Questionnaire Answer Date [...] place to sleep or slept in a penitentiary (including now)? No 11/05/2023 Housing Stability Vital Sign Answer Darryl e Recorded In the last 12 months, was t here a time when you were not able to pay the mortgage or rent on time? No 05/04/2024 Number of Times Moved in the Last Year Not on fi le 05/04/2024 At any time in the past [address] [facility], were you homeless or living in a penitentiary (including now)? No 05/04/2024 Education Answer Date [...] on file documented as of this encounter Miscellaneous Notes * Telephone Encounter - Leah Silva RN - 06/16/2025 12:07 PM CDT SITUATION: Dizziness. BACKGROUND: Per chart review, Last office visit with Jazmin Medley on 05/30/25. ASSESSMENT: Symptom Description / Location: Patient had a baby on March 22. Patient has mastitis around 1 month ago. Was given antibiotic - did not finish completely Does not have pain in breasts, warmth, reddness Feeling dizzy Already had these issues and spoke with provider about them Had blood work done Dizziness bad today nauseous 99.8F today Diarrhea the past 3 days Patient states she is going at least 3-4 times per day Patient states she does not typically have a BM every day Treatment / Response: patient just took another antibiotic pill today. RECOMMENDATION: Caller agreeable to highest disposition listed: Go to Office or Video Visit Now. Care advice provided per triage guideline. Caller verbalized understanding. Due to office unavailability within disposition, advised for patient to be seen at prompt care or urgent care. Caller agreeable to prompt care/urgent care. Discussed utilizing [employer] to: needs anything further. - Meds/Allergies/Pharmacy verified. See care advice and disposition for Guideline. First positive answer recorded, all responses to prior questions were negative. If symptoms increase, change or if new symptoms develop, call your health care provider or call back. Recommendations were based on caller information and is not a diagnosis. Verified and reviewed all triage information with caller. documented in this encounter Plan of Treatment Upcoming Encounters Date Type Department Care Team (Late st Contact Info) Description 08/05/2025 1:45 PM CDT Office Visit [facility] [address] [place] [address] Jessica Sloan [address] [place] [address] documented as of this encounter Goals Goal Patient Goal Type Associated Problems Recent Progress Patient-Stated? Author Behavioral Health Behavioral Health On track( 022 11:06 AM CDT) Yes Rachel Mercedes LCPC Note: Suki reports a desire to get back to normal, improve ability to cope. Goal Reviewed with: patient Readiness to change: Ready to change Department associated with goal: [facility] Steps to achieve goal: [...] Health Worsening( 11:08 AM CDT) No Rachel Mercedes, TOURIST INFORMATION ASSISTANT Note: Suki will exhibit/verbalize insight regarding benefits and relief gained from coping with anger more effectively Goal Reviewed with: patient Readiness to change: Not yet ready to make a change Department associated with goal: [facility] Steps to achieve goal: [...] documented as of this encounter Care Teams Solar Field Service Technician Relationship Specialty Start Date End Date Jessica Sloan [address] [place] [address] PCP - General Physician Driver/Refuse Collector 09/26/17 Peter Jade MD [address] [place] [address] Consulting Physician Obstetrics & Gynecology 06/02/18 documented as of this encounter
--- OUTSIDE RECORDS SUMMARY | 2025-06-16 14:06 | XMS_ITS | Encounter Summary ---
Author Organization [facility] Healthcare Address [address] [place] [address] Care Team Providers Care Distribution Superintendent Name Role Phone Jessica Sloan Primary Care Provider [phone] Encounter Details Date Type Department Care Team (Late st Contact Info) Description 05/06/2025 Results Follow-Up [facility] [address] [place] [address] Marie Kevin MD [address] [address] Surgical pathology Social History Tobacco Use Types Packs/Day Years Used Date Smoking Tobacco: Former Cigarettes 0.1 2018 Smokeless Tobacco: Never Comments:couple cigarettes here [...] 03/23/2025 How often do you attend chur or rastafarian services? Never 03/23/2025 Do you belong to any clubs o r organizations such as gnosticism groups, unions, fraternal or athletic groups, or [...] things needed for daily living? No 03/23/2025 [place] Depression Scale Answer Date Recorded [place] Depression Scale Total 2 05/05/2025 The thought [...] any time in the past 12 m [facility], were you homeless or living in a [...] on file Legal Sex Female 1:46 AM [employer] Gender Identity Not on file Sexual Orientation Not on file Occupation Industry Job Start Date Job End Date [employer] Not on file Not on file No t on file documented as of this encounter Plan of Treatment Not on file documented as of this encounter Visit Diagnoses Not on filedocumented in this encounter Care Teams Distribution Superintendent Relationship Specialty Start Date End Date Jessica Sloan PA [address] [address] PCP - General 09/25/17 documented as of this encounter
[2025-06-16 14:09] VITALS: BP 135/83; PULSE 75; RESP 16; TEMP 36.8; O2SAT 100
--- NOTE | 2025-06-16 14:45 | ECG_ITS ---
Test Date: 2025-06-16 14:22:27 Measurements Intervals [place] Rate: 64 P: 36 DE: 165 QRS: 60 QRSD: 103 T: 52 QT: 413 QTc: 427 Interpretive Statements SINUS RHYTHM NORMAL ECG No previous ECG available for comparison Electronically Signed On 06-16-2025 14:50:45 CDT by Teddy Celeste D.O.
--- NOTE | 2025-06-16 14:52 | ED_ITS ---
HPI - Dizziness General Chief Complaint: Dizziness Stated Complaint: Dizziness Time Seen by Provider: 06/16/25 14:35 Source: patient and RN notes reviewed Mode of arrival: ambulatory Limitations: no limitations History of Present Illness HPI Narrative: 30-year-old female presents to the [facility] complaining of dizziness that is been ongoing for last 3 months. Patient reports she is 3 months also reports feeling dizziness lower she was . Patient says she had a light recent lab work near total was normal. Patient said today she had a severe episode of dizziness that was so severe she felt like she was going to pass out. She reports she is having blurry vision headache today. Patient denies any slurred speech, nausea, vomiting, facial droop, weakness, chest pains, difficulty breathing, any other symptoms. Patient has been taking Zofran as needed for nausea. Patient denies any other significant past medical history. Patient says she was recently for mastitis. Related Data Home Medications ?Medication ?Instructions ?Recorded ?Confirmed ?Last Taken ?Type albuterol sulfate 90 mcg/actuation 2 puff inhalation Q4-6H PRN 10/05/24 10/05/24 Unknown History aerosol inhaler Shortness Of Breath Or Wheezing ondansetron 4 mg disintegrating mg 06/16/25 Unknown History tablet Allergies Allergy/AdvReac Type Severity Reaction Status Date / Time No Known Allergies Allergy Verified 06/16/25 14:15 Review of Systems Review of Systems: CONSTITUTIONAL: Denies fever, chills, or sweats. EYES: Denies visual changes, redness, or discharge. Positive for blurry vision. ENT: Denies rhinorrhea, congestion, sore throat, or otalgia. CARDIOVASCULAR: Denies chest pain, palpitations, lightheadedness, or edema. Positive for dizziness and near syncope. RESPIRATORY: Denies cough or dyspnea. GASTROINTESTINAL: Denies abdominal pain, nausea, vomiting, or diarrhea. GENITOURINARY: Denies dysuria or hematuria. SKIN: Denies rash or itching. MUSCULOSKELETAL: Denies back pain, joint pain, or myalgia. NEUROLOGIC: Denies focal weakness, slurred speech, facial droop, numbness, loss of consciousness, or weakness. Positive for headache. PSYCHIATRIC: Denies anxiety or depression. All other systems reviewed are negative, except as documented in HPI. [facility] Comments At the time of my signature, I reviewed and agree with the nursing past medical, surgical, social, and family history. There is no relevant family history pertinent to the patient complaint. Exam Narrative: GENERAL: This is a well-nourished, well-developed adult, in no apparent distress. They are non ill-appearing, nontoxic appearing. HEAD: normocephalic, atraumatic. EYES: Sclera clear/white. Conjunctiva normal. Vision is grossly intact. Extraocular movements intact. No nystagmus. Pupils PERRLA. EARS: External ears normal, auditory canals clear and without drainage, TMs normal without perforation. Hearing grossly intact. NOSE: External nose normal with no obvious nasal discharge, nasal turbinates without redness, no rhinorrhea. THROAT: Mucous membranes moist, posterior pharynx clear, without erythema or swelling. Uvula midline. NECK: Neck supple, non-tender without lymphadenopathy, masses or thyromegaly. CARDIOVASCULAR: Regular rate and rhythm without murmurs, gallops, or rubs. RESPIRATORY: Clear to auscultation. Breath sounds equal bilaterally. No wheezes, rales, or rhonchi. SKIN: warm, Dry, intact with no suspicious lesions or rash, good texture and turgor. NEURO: awake, alert, and oriented to person, place and time. There were no obvious focal neurologic abnormalities. Cranial nerve 2-12 grossly intact. No facial droop. No pronator drift. No limb ataxia. Alum Operator strength 5/5 equal bilaterally. Leg strength 5/5 equal bilaterally. Normal dorsiflexion and plantar flexion. Normal sensation. EXTREMITIES: No joint tenderness, effusion, or edema noted. Course Course Emergency Course: Portions of this record may have been created with voice recognition software Level of Care: Express Care Visit Vital Signs Vital signs: Vital Signs Temperature 98.2 F 06/16/25 14:09 Pulse Rate 75 06/16/25 14:09 Respiratory Rate 16 06/16/25 14:09 Blood Pressure 135/83 06/16/25 14:09 Pulse Oximetry 100 06/16/25 14:09 Oxygen Delivery Room Air 06/16/25 14:09 Temperature 98.2 F 06/16/25 14:09 Pulse Rate 75 06/16/25 14:09 Respiratory Rate 16 06/16/25 14:09 Blood Pressure 135/83 06/16/25 14:09 Pulse Oximetry 100 06/16/25 14:09 Oxygen Delivery Room Air 06/16/25 14:09 Reviewed Transfer Transfered to: [facility] Transportation: Other (Private vehicle) Transfer rationale: Patient requires Higher level care, possible lab work, advanced imaging, further management and assessment. Accepting physician: Dr. Wall Transfer comments: Patient's mother to take care via POV. MDM - Dizziness MDM Narrative Medical decision making narrative: EKG sinus rhythm without ischemic findings. NIH score 0. Given patient's symptoms, it is recommend the patient seek a higher level care and proceed immediately to the emergency department. Patient is agreeable to go to [facility] ER. Called over this [facility] ER and spoke with Dina Segovia who is aware this patient and Dr. Wall who accepted the patient for transfer. Offered patient EMS but she states her mother will take her via POV. Patient advised to remain NPO and proceed immediately to the ER. Differential Diagnosis Differential diagnosis: Likely benign paroxysmal positional vertigo, orthostatic hypotension, cerebrovascular accident, acute vestibular neuronitis and other (Arrhythmia) ECG Data EKG #1: ECG completion date: 06/16/25 ECG completion time: 14:22 Prior ECG tracings: not available for review EKG Interpretation: normal rate, sinus rhythm, no ectopy, no ST changes, normal QRS, normal QT and NL axis Critical Care Time Critical Care Time Critical Care Time: No Discharge Plan Discharge Clinical Impression: Dizziness Patient Disposition: Acute Care Hospital Condition: Stable Patient Language: Burmese Prescriptions: No Action albuterol sulfate 90 mcg/actuation HFA aerosol inhaler 2 puff INHALATION Q4-6H PRN (Reason: Shortness Of Breath Or Wheezing) ondansetron 4 mg tablet,disintegrating Follow-up/Referrals: Nathalia,JESSICA Bernstein [Primary Care Provider] - Time of Disposition: 14:52
== END 2025-06-16 15:06 | disposition short-term general hospital (02) ==
PROVIDERS: PCP Physician Assistant
DX: R42 Dizziness and giddiness (principal)
CPT/HCPCS: 93005; 99213; G0463